=== PATIENT | male | born 1950 | race Caucasian/White ===

== ENCOUNTER 2020-07-23 06:55 | Day surgery (SDC) | payer MEDICARE ==
[~2020-07-23 06:55] MED LIST: LACTATED RINGERS 1,000 ML IV SCH; LIDOCAINE 1% (10MG/ML) FOR IV START INTRADERMA PRN
[2020-07-23 07:18] VITALS: TEMP 97.8
[2020-07-23] MEDS ORDERED: LACTATED RINGERS 1,000 ML IV ONE (07:18)
[2020-07-23] MEDS ORDERED: PROPOFOL 10 MG/ML 20 ML VIAL IV ONE (07:53)
--- NOTE | 2020-07-23 08:13 | P.PCN ---
Date of Procedure: 07/23/20 Procedure(s) Performed: BRIEF HISTORY: Patient is a 70-year-old pleasant 8 male scheduled for an elective colonoscopy as a part of screening for colon cancer and family history of colon cancer in his father was diagnosed with colon cancer at age 70. PROCEDURE PERFORMED: Colonoscopy. PREOPERATIVE DIAGNOSIS: Screening for colon cancer/family history of colon cancer. IV sedation per Anesthesia. PROCEDURE: After informed consent was obtained, the patient, was brought into the endoscopy unit. IV sedation was administered by Anesthesia under continuous monitoring. Digital rectal examination was normal. Initially the Olympus CF-160 flexible video colonoscope was then inserted in the rectum, gradually advanced into the cecum without any difficulty. Careful examination was performed as the scope was gradually being withdrawn. Ileocecal valve and the appendiceal orifice were visualized and appeared normal. Prep was excellent. Mucosa of the cecum, ascending colon, transverse colon, descending colon, sigmoid colon, and rectum appeared normal. At her sigmoid diverticulosis seen. Retroflexion was performed in the rectum and no lesions were seen. The patient tolerated the procedure well. IMPRESSION: Normal-appearing colon from rectum to cecum no evidence of colorectal neoplasia . Scattered sigmoid diverticulosis. RECOMMENDATIONS: Findings of this examination were discussed with the patient as well as his family. He was advised to have a repeat screening colonoscopy in 5 years from now because of family history of colon cancer.
[2020-07-23 08:17] VITALS: RESP 16
[2020-07-23 08:34] VITALS: BP 131/79; PULSE 72
== END 2020-07-23 08:54 | disposition home or self-care (01) ==
LOC: ORWHC2ENDO 06:55
PROVIDERS: ATTEND Internal Medicine Gastroenterology
DX: Z12.11 Encounter for screening for malignant neoplasm of colon (principal); K57.30 Diverticulosis of large intestine without perforation or abscess without bleeding; Z80.0 Family history of malignant neoplasm of digestive organs; Z79.890 Hormone replacement therapy; Z79.899 Other long term (current) drug therapy; Z98.49 Cataract extraction status, unspecified eye; Z96.643 Presence of artificial hip joint, bilateral; C91.11 Chronic lymphocytic leukemia of B-cell type in remission
CPT/HCPCS: J2704; G0105

== ENCOUNTER → 2020-11-09 | Outpatient (CLI) | payer MEDICARE | END | disposition home or self-care (01) | LOC: CPPFTMAIN 11:57 | PROVIDERS: ATTEND Internal Medicine | DX: J45.909 Unspecified asthma, uncomplicated (principal); R94.2 Abnormal results of pulmonary function studies | CPT/HCPCS: 94060; 94726; 94729 ==

== ENCOUNTER → 2021-08-31 | Outpatient (CLI) | payer MEDICARE ==
--- NOTE | 2021-08-31 15:12 | CT ---
EXAMINATION TYPE: CT abdomen pelvis w con DATE OF EXAM: 08/31/2021 COMPARISON: None HISTORY: RLQ pain CT DLP: 1194.3 mGycm Automated exposure control for dose reduction was used. CONTRAST: CT scan of the abdomen pelvis is performed with IV Contrast, patient injected with 80cc mL of Isovue 300. FINDINGS- LUNG BASES- No significant abnormality is appreciated. Heart is enlarged. LIVER/GB- No gross abnormality is appreciated. PANCREAS- No gross abnormality is seen. SPLEEN-spleen measures 20 cm and is markedly enlarged. Prominent spur of splenic varices are noted. D ilation of the splenic vein is seen.. ADRENALS- No gross abnormality is seen. KIDNEYS/BLADDER- no hydronephrosis or nephrolithiasis. There is a indeterminate subcentimeter upper p ole right renal lesion.. BOWEL-bowel gas pattern nonspecific. Diverticulosis of the colon.. LYMPH NODES-there is a pathologic lymph node in the bilateral iliac/femoral chain measuring short axi s of 1.1 cm. Additional areas of shotty lymphadenopathy are seen in the pelvis. OSSEOUS STRUCTURES-postsurgical changes with bilateral hip prostheses which result in artifact limiti ng assessment of the pelvis. Severe degenerative disc disease with retrolisthesis L2-L3. Severe degen erative disc disease lower thoracic spine.. OTHER- no free fluid or free air. 5.3 cm left flank soft tissue or intramuscular lipoma. Bladder obs cured by artifact. IMPRESSION- 1. Severe splenomegaly measuring 20 cm correlate clinically. 2. Pathologic bilateral lower quadrant lymphadenopathy in bilateral iliac chain, measuring 1.1 cm in short axis correlate clinically. Does the patient have a history of lymphoma, leukemia or malignancy? 3. Severe degenerative disc disease L2-L3 with retrolisthesis consider follow-up MRI. Suspect canal s tenosis and bilateral foraminal encroachment. 4. Metallic artifact from the patient's hip prostheses results in nondiagnostic assessment of portion s of the pelvis. 5. 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 MRI cou ld be obtained to exclude atypical lipoma. #6 indeterminate subcentimeter upper pole right renal lesi on does not meet the criteria of a simple cyst. Follow-up MRI recommended.
== END | disposition home or self-care (01) ==
LOC: RADCTMAIN 13:01
PROVIDERS: ATTEND Family Medicine
DX: R10.31 Right lower quadrant pain (principal); R16.1 Splenomegaly, not elsewhere classified; R59.1 Generalized enlarged lymph nodes; M51.36 Other intervertebral disc degeneration, lumbar region; M43.16 Spondylolisthesis, lumbar region; D17.9 Benign lipomatous neoplasm, unspecified
CPT/HCPCS: 82565; 84520; 74177; 36415; Q9967

== ENCOUNTER 2022-02-01 05:48 | Emergency (ER) | payer MEDICARE ==
[2022-02-01 05:54] VITALS: RESP 18; TEMP 98.2
[2022-02-01] MEDS ORDERED: methylPREDNISolone SOD SUCCI 125 MG/2 ML VIAL IV STA (06:14)
[2022-02-01] MEDS ORDERED: IPRATROPIUM-ALBUTEROL 3 ML NEB INHALATION STA (06:14)
--- NOTE | 2022-02-01 06:32 | ED ---
General Adult HPI - General Chief complaint: Shortness of Breath Stated complaint: SOB Time Seen by Provider: 02/01/22 05:59 Source: patient, RN notes reviewed Mode of arrival: wheelchair Limitations: no limitations - History of Present Illness Initial comments: This is a 71-year-old male presents emergency Department with chief complaint of shortness of breath. Patient states been having increasing shortness with the last 3 days. Patient states his productive cough denies any fever, chills or night sweats. Patient states he has no prior lung disease no COPD, asthma. Patient does have underlying CLL. Patient states that she has no went to chest pain does have some mild rib pain. Patient denies any leg swelling, leg pain no prior cardiac disease. - Related Data Home Medications Medication Instructions Recorded Confirmed Cholecalciferol [Vitamin D3] 2,000 unit PO DAILY 12/23/14 07/22/20 Fish Oil/Dha/Epa [Fish Oil 1,200 1 each PO DAILY 12/23/14 07/22/20 mg Fish Oil] Magnesium Oxide [Mag-Ox] 250 mg PO DAILY 12/23/14 07/22/20 Multivitamins, Thera [Theragran] 1 each PO DAILY 12/23/14 07/22/20 Levothyroxine Sodium 88 mcg PO QAM 07/22/20 07/22/20 Previous Rx's Medication Instructions Recorded Albuterol Sulfate [Proair Hfa] 1 - 2 puff INHALATION Q4HR PRN 02/01/22 #8.5 gm Azithromycin [Zithromax Z-pack (6 0 mg PO DIRECTED #1 packet 02/01/22 tabs)] predniSONE 50 mg PO DAILY #5 tab 02/01/22 Allergies Allergy/AdvReac Type Severity Reaction Status Date / Time No Known Allergies Allergy Verified 02/01/22 05:54 Review of Systems ROS Statement: Those systems with pertinent positive or pertinent negative responses have been documented in the HPI. ROS Other: All systems not noted in ROS Statement are negative. Past Medical History Past Medical History: Osteoarthritis (OA), Thyroid Disorder Additional Past Medical History / Comment(s): CHRONIC LYMPHOCYSTIC LEUKEMIA (IN REMISSION, DR. COBURN) History of Any Multi-Drug Resistant Organisms: None Reported Additional Past Surgical History / Comment(s): BILATERAL HIP REPLACED. CATARACTS, COLONOSCOPYS. Past Anesthesia/Blood Transfusion Reactions: No Reported Reaction Past Psychological History: No Psychological Hx Reported Smoking Status: Never smoker Past Alcohol Use History: Occasional Past Drug Use History: None Reported - Past Family History Father Family Medical History: Cancer Additional Family Medical History / Comment(s): COLON CANCER General Exam Limitations: no limitations General appearance: alert, in no apparent distress Head exam: Present: atraumatic, normocephalic, normal inspection Eye exam: Present: normal appearance, PERRL, EOMI. Absent: scleral icterus, conjunctival injection, periorbital swelling ENT exam: Present: normal exam, mucous membranes moist Neck exam: Present: normal inspection, full ROM Respiratory exam: Present: wheezes, rhonchi. Absent: normal lung sounds bilaterally, respiratory distress, rales, stridor Cardiovascular Exam: Present: regular rate, normal rhythm, normal heart sounds. Absent: systolic murmur, diastolic murmur, rubs, gallop, clicks GI/Abdominal exam: Present: soft, normal bowel sounds. Absent: distended, tenderness, guarding, rebound, rigid Neurological exam: Present: alert, oriented X3 Skin exam: Present: warm, dry, intact, normal color. Absent: rash Course Vital Signs 02/01/22 02/01/22 02/01/22 05:49 06:24 06:30 Temperature 98.2 F Pulse Rate 84 86 88 Respiratory 18 Rate Blood Pressure 163/84 O2 Sat by Pulse 95 Oximetry EKG Findings - EKG Comments: EKG Findings:: EKG performed at 6:08 sinus rhythm with noted right bundle, rate of 81 MT 161 QRS 142 QT/QTC 379/416 Medical Decision Making - Medical Decision Making 71-year-old male presents emergency department for cough congestion. Patient's x-ray does not reveal any acute findings, negative COVID-19, negative influenza. Does feel improved after DuoNeb treatment, IV steroids. Patient we treated for tracheobronchitis. Patient does have underlying CLL. Patient prefers to be discharged home with strict return parameters. - Lab Data Result diagrams: 02/01/22 06:17 02/01/22 06:17 Lab Results 02/01/22 02/01/22 02/01/22 Range/Units 06:17 06:17 06:17 WBC 20.9 H (3.8-10.6) k/uL RBC 4.98 (4.30-5.90) m/uL Hgb 14.1 (13.0-17.5) gm/dL Hct 43.7 (39.0-53.0) % MCV 87.8 (80.0-100.0) fL MCH 28.3 (25.0-35.0) pg MCHC 32.2 (31.0-37.0) g/dL RDW 14.2 (11.5-15.5) % Plt Count 99 L (150-450) k/uL MPV 7.3 Neutrophils % 26 % Lymphocytes % 67 % Monocytes % 2 % Eosinophils % 2 % Basophils % 0 % Neutrophils # 5.4 (1.3-7.7) k/uL Lymphocytes # 14.0 H (1.0-4.8) k/uL Monocytes # 0.4 (0-1.0) k/uL Eosinophils # 0.5 (0-0.7) k/uL Basophils # 0.1 (0-0.2) k/uL Manual Slide Review Performed PT 10.4 (9.0-12.0) sec INR 1.0 (<1.2) APTT 22.9 (22.0-30.0) sec Sodium 142 (137-145) mmol/L Potassium 4.3 (3.5-5.1) mmol/L Chloride 107 (98-107) mmol/L Carbon Dioxide 26 (22-30) mmol/L Anion Gap 9 mmol/L BUN 23 H (9-20) mg/dL Creatinine 1.27 H (0.66-1.25) mg/dL Est GFR (CKD-EPI)AfAm 64 (>60 ml/min/1.73 sqM) Est GFR (CKD-EPI)NonAf 56 (>60 ml/min/1.73 sqM) Glucose 121 H (74-99) mg/dL Plasma Lactic Acid Parker (0.7-2.0) mmol/L Calcium 8.9 (8.4-10.2) mg/dL Magnesium 2.1 (1.6-2.3) mg/dL Total Bilirubin 2.2 H (0.2-1.3) mg/dL AST 27 (17-59) U/L ALT 14 (4-49) U/L Alkaline Phosphatase 69 (38-126) U/L Troponin I (0.000-0.034) ng/mL NT-Pro-B Natriuret Pep pg/mL Total Protein 7.3 (6.3-8.2) g/dL Albumin 4.8 (3.5-5.0) g/dL Coronavirus (PCR) (Not Detectd) Influenza Type A RNA (Not Detectd) Influenza Type B (PCR) (Not Detectd) 02/01/22 02/01/22 02/01/22 Range/Units 06:17 06:17 06:17 WBC (3.8-10.6) k/uL RBC (4.30-5.90) m/uL Hgb (13.0-17.5) gm/dL Hct (39.0-53.0) % MCV (80.0-100.0) fL MCH (25.0-35.0) pg MCHC (31.0-37.0) g/dL RDW (11.5-15.5) % Plt Count (150-450) k/uL MPV Neutrophils % % Lymphocytes % % Monocytes % % Eosinophils % % Basophils % % Neutrophils # (1.3-7.7) k/uL Lymphocytes # (1.0-4.8) k/uL Monocytes # (0-1.0) k/uL Eosinophils # (0-0.7) k/uL Basophils # (0-0.2) k/uL Manual Slide Review PT (9.0-12.0) sec INR (<1.2) APTT (22.0-30.0) sec Sodium (137-145) mmol/L Potassium (3.5-5.1) mmol/L Chloride (98-107) mmol/L Carbon Dioxide (22-30) mmol/L Anion Gap mmol/L BUN (9-20) mg/dL Creatinine (0.66-1.25) mg/dL Est GFR (CKD-EPI)AfAm (>60 ml/min/1.73 sqM) Est GFR (CKD-EPI)NonAf (>60 ml/min/1.73 sqM) Glucose (74-99) mg/dL Plasma Lactic Acid Parker 1.0 (0.7-2.0) mmol/L Calcium (8.4-10.2) mg/dL Magnesium (1.6-2.3) mg/dL Total Bilirubin (0.2-1.3) mg/dL AST (17-59) U/L ALT (4-49) U/L Alkaline Phosphatase (38-126) U/L Troponin I <0.012 (0.000-0.034) ng/mL NT-Pro-B Natriuret Pep 110 pg/mL Total Protein (6.3-8.2) g/dL Albumin (3.5-5.0) g/dL Coronavirus (PCR) (Not Detectd) Influenza Type A RNA (Not Detectd) Influenza Type B (PCR) (Not Detectd) 02/01/22 02/01/22 Range/Units 06:17 06:17 WBC (3.8-10.6) k/uL RBC (4.30-5.90) m/uL Hgb (13.0-17.5) gm/dL Hct (39.0-53.0) % MCV (80.0-100.0) fL MCH (25.0-35.0) pg MCHC (31.0-37.0) g/dL RDW (11.5-15.5) % Plt Count (150-450) k/uL MPV Neutrophils % % Lymphocytes % % Monocytes % % Eosinophils % % Basophils % % Neutrophils # (1.3-7.7) k/uL Lymphocytes # (1.0-4.8) k/uL Monocytes # (0-1.0) k/uL Eosinophils # (0-0.7) k/uL Basophils # (0-0.2) k/uL Manual Slide Review PT (9.0-12.0) sec INR (<1.2) APTT (22.0-30.0) sec Sodium (137-145) mmol/L Potassium (3.5-5.1) mmol/L Chloride (98-107) mmol/L Carbon Dioxide (22-30) mmol/L Anion Gap mmol/L BUN (9-20) mg/dL Creatinine (0.66-1.25) mg/dL Est GFR (CKD-EPI)AfAm (>60 ml/min/1.73 sqM) Est GFR (CKD-EPI)NonAf (>60 ml/min/1.73 sqM) Glucose (74-99) mg/dL Plasma Lactic Acid Parker (0.7-2.0) mmol/L Calcium (8.4-10.2) mg/dL Magnesium (1.6-2.3) mg/dL Total Bilirubin (0.2-1.3) mg/dL AST (17-59) U/L ALT (4-49) U/L Alkaline Phosphatase (38-126) U/L Troponin I (0.000-0.034) ng/mL NT-Pro-B Natriuret Pep pg/mL Total Protein (6.3-8.2) g/dL Albumin (3.5-5.0) g/dL Coronavirus (PCR) Not Detected (Not Detectd) Influenza Type A RNA Not Detected (Not Detectd) Influenza Type B (PCR) Not Detected (Not Detectd) Disposition Clinical Impression: Tracheobronchitis Disposition: TRANSFER TO PSYCH HOSP/UNIT Condition: Stable Instructions (If sedation given, give patient instructions): Acute Bronchitis (ED), Bronchospasm (ED) Additional Instructions: Please return to the Emergency Department if symptoms worsen or any other concerns. Prescriptions: predniSONE 50 mg PO DAILY #5 tab Albuterol Sulfate [Proair Hfa] 1 - 2 puff INHALATION Q4HR PRN #8.5 gm PRN Reason: difficulty in breathing Azithromycin [Zithromax Z-pack (6 tabs)] 0 mg PO DIRECTED #1 packet Is patient prescribed a controlled substance at d/c from ED?: No Referrals: Melinda Elkins MD [Primary Care Provider] - 1-2 days Time of Disposition: 08:14
--- NOTE | 2022-02-01 06:41 | XR ---
EXAMINATION TYPE: XR chest 2V DATE OF EXAM: 02/01/2022 COMPARISON: 07/19/2021 HISTORY: Short of breath TECHNIQUE: 2 views FINDINGS: Heart and mediastinum are normal. Lungs are clear. Diaphragm is normal. Bony thorax is inta ct. IMPRESSION: Normal chest. No change.
[2022-02-01 06:44] LABS: Albumin 4.8 g/dL (3.5-5.0); Calcium 8.9 mg/dL (8.4-10.2); Magnesium 2.1 mg/dL (1.6-2.3); Potassium 4.3 mmol/L (3.5-5.1); Total Bilirubin 2.2 mg/dL (0.2-1.3); Total Protein 7.3 g/dL (6.3-8.2)
[2022-02-01 07:00] LABS: Basophils # (A) 0.1 k/uL (0-0.2); Basophils % (A) 0 %; Eosinophils # (A) 0.5 k/uL (0-0.7); Eosinophils % (A) 2 %; HCT 43.7 % (39.0-53.0); HGB 14.1 gm/dL (13.0-17.5); Lymphocytes % (A) 67 %; MCH 28.3 pg (25.0-35.0); MCHC 32.2 g/dL (31.0-37.0); MCV 87.8 fL (80.0-100.0); Mean Platelet Volume 7.3; Monocytes # (A) 0.4 k/uL (0-1.0); Monocytes % (A) 2 %; Neutrophils # (A) 5.4 k/uL (1.3-7.7); Neutrophils % (A) 26 %; RBC 4.98 m/uL (4.30-5.90); RDW 14.2 % (11.5-15.5); WBC 20.9 k/uL (3.8-10.6)
[2022-02-01 07:22] LABS: Partial Thromboplastin Time 22.9 sec (22.0-30.0); Prothrombin Time 10.4 sec (9.0-12.0)
[2022-02-01 08:02] LABS: Platelet Count 99 k/uL (150-450)
[2022-02-01] MEDS ORDERED: cefTRIAXone IN SWFI 1,000 MG/10 ML SYRINGE IVP STA (08:12)
[2022-02-01 08:28] VITALS: BP 156/88; PULSE 78
== END 2022-02-01 08:28 ==
LOC: EC 05:48
DX: J40 Bronchitis, not specified as acute or chronic (principal); E07.9 Disorder of thyroid, unspecified; Z79.1 Long term (current) use of non-steroidal anti-inflammatories (NSAID); Z20.822 Contact with and (suspected) exposure to COVID-19
CPT/HCPCS: 99285; 96375; 96374; 36415; 94640; 93005; 83880; 80053; 83605; 83735; 84484; 85025; 85610; 85730; 87502; 87635; 71046; J2930; J0696

== ENCOUNTER → 2022-03-28 | Outpatient (CLI) | payer MEDICARE | END | disposition home or self-care (01) | LOC: RADMRIMAIN 06:14 | PROVIDERS: ATTEND Internal Medicine Hematology & Oncology | DX: C91.10 Chronic lymphocytic leukemia of B-cell type not having achieved remission (principal); M25.511 Pain in right shoulder | CPT/HCPCS: 73223; A9585 ==

== ENCOUNTER 2022-08-31 10:17 | Emergency (ER) | payer MEDICARE ==
[2022-08-31 10:23] VITALS: RESP 18
[2022-08-31] MEDS ORDERED: SODIUM CHLORIDE 0.9% 500 ML 500 ML IV STA (10:37)
--- NOTE | 2022-08-31 10:43 | ED ---
General Adult HPI - General Chief complaint: Shortness of Breath Stated complaint: Chest Pain,SOB Time Seen by Provider: 08/31/22 10:25 Source: patient, RN notes reviewed, old records reviewed Mode of arrival: ambulatory Limitations: no limitations - History of Present Illness Initial comments: This is a pleasant 72-year-old male that presents to the emergency room with complaints of productive yellow cough and left-sided chest pain for the past 2 days. He denies any fevers, no diaphoresis, no nausea vomiting or diarrhea. Patient states went to his primary care doctor today and was directed to the emergency room for evaluation. EKG was done at the office. Patient denies any cardiac history. Does have a history of CLL in remission. Patient is a nonsmoker. -: days(s) (2) Location: chest Radiation: non-radiation Severity scale (1-10): 0 Consistency: now resolved Worsens with: other (Cough) Associated Symptoms: cough (Productive), shortness of breath Treatments Prior to Arrival: other (Sent by PCP) - Related Data Home Medications Medication Instructions Recorded Confirmed Levothyroxine Sodium 88 mcg PO DAILY 07/22/20 08/31/22 Celecoxib [CeleBREX] 200 mg PO DAILY 02/01/22 08/31/22 Previous Rx's Medication Instructions Recorded Doxycycline [Vibramycin] 100 mg PO BID 5 Days #10 capsule 08/31/22 predniSONE 50 mg PO DAILY #4 tab 08/31/22 Allergies Allergy/AdvReac Type Severity Reaction Status Date / Time No Known Allergies Allergy Verified 08/31/22 11:23 Review of Systems ROS Statement: Those systems with pertinent positive or pertinent negative responses have been documented in the HPI. ROS Other: All systems not noted in ROS Statement are negative. Past Medical History Past Medical History: Osteoarthritis (OA), Thyroid Disorder Additional Past Medical History / Comment(s): CHRONIC LYMPHOCYSTIC LEUKEMIA (IN REMISSION, DR. COBURN) History of Any Multi-Drug Resistant Organisms: None Reported Additional Past Surgical History / Comment(s): BILATERAL HIP REPLACED. CATARACTS, COLONOSCOPYS. Past Anesthesia/Blood Transfusion Reactions: No Reported Reaction Past Psychological History: No Psychological Hx Reported Smoking Status: Never smoker Past Alcohol Use History: Rare Past Drug Use History: None Reported - Past Family History Father Family Medical History: Cancer Additional Family Medical History / Comment(s): COLON CANCER General Exam Limitations: no limitations General appearance: alert, in no apparent distress Head exam: Present: atraumatic Eye exam: Absent: scleral icterus, conjunctival injection, periorbital swelling ENT exam: Present: mucous membranes moist Expanded Mouth exam: Present: tongue normal, tongue elevation. Absent: drooling, trismus, muffled voice Throat exam: negative: tonsillar erythema, tonsillar exudate Neck exam: Present: full ROM. Absent: tenderness, meningismus Respiratory exam: Present: wheezes (Left), rhonchi. Absent: respiratory distress, stridor, accessory muscle use Cardiovascular Exam: Present: regular rate GI/Abdominal exam: Present: soft. Absent: distended, tenderness, rigid Extremities exam: Present: normal capillary refill Back exam: Present: normal inspection. Absent: tenderness, rash noted Neurological exam: Present: alert, oriented X3 Psychiatric exam: Present: normal affect, normal mood Skin exam: Present: warm, dry, normal color. Absent: rash, cyanosis, diaphoretic, erythema, petechiae, pallor, mottled Course Vital Signs 08/31/22 08/31/22 08/31/22 10:20 11:34 12:09 Temperature 97.6 F Pulse Rate 94 80 79 Respiratory 18 18 18 Rate Blood Pressure 160/89 137/76 153/81 O2 Sat by Pulse 98 96 96 Oximetry - Reevaluation(s) Reevaluation #1: 08/31/22 12:11 He states he is not having any chest pain and has not had pain while in the emergency room. I offered admission for cardiology consult and he declined. Patient is agreeable to having second troponin drawn. Time: 12:11 EKG Findings - EKG Results: EKG: interpreted by MISSY, sinus rhythm (Ventricular rate 81, PA interval 0.132, QRS 0.150, QTC 0.442; normal axis ; compared to old EKG dated 02/01/2022 no significant change T-wave inversions noted in old EKG) Medical Decision Making - Medical Decision Making Chest x-ray interpreted by me shows no evidence of focal consolidation. Cardiac silhouette of normal is trachea is midline. Radiologist interpretation no acute process, mild hyperinflation consistent with asthma or COPD Total bili 3.0 previous bilirubin 2.2 in January 2022 White blood cell count 18.4 however patient does have CLL, white count in January 2022 was 20.9 Patient was notified of these results and directed to follow up with his primary care doctor regarding elevated bilirubin. Troponin is negative. EKG interpreted by me shows no ST elevation. No EKG changes. Coronavirus influenza virus swabs are negative. Patient was offered admission for cardiology consult and declined. We discussed the importance of follow-up. He was willing to stay for a second troponin as first one was negative. He has had no chest pain while in hospital. Patient leaving AGAINST MEDICAL ADVICE did not want to wait for the result of the second troponin. He was prescribed prednisone and doxycycline for clinical pneumonia. Directed to follow-up with his primary care doctor next week. Case discussed with Dr. Hale - Lab Data Result diagrams: 08/31/22 10:38 08/31/22 10:38 Lab Results 08/31/22 08/31/22 08/31/22 Range/Units 10:38 10:38 10:38 WBC 18.4 H (3.8-10.6) k/uL RBC 4.75 (4.30-5.90) m/uL Hgb 13.9 (13.0-17.5) gm/dL Hct 41.6 (39.0-53.0) % MCV 87.5 (80.0-100.0) fL MCH 29.3 (25.0-35.0) pg MCHC 33.4 (31.0-37.0) g/dL RDW 13.5 (11.5-15.5) % Plt Count 73 L (150-450) k/uL MPV 7.5 Neutrophils % 24 % Lymphocytes % 71 % Monocytes % 2 % Eosinophils % 1 % Basophils % 1 % Neutrophils # 4.4 (1.3-7.7) k/uL Lymphocytes # 13.1 H (1.0-4.8) k/uL Monocytes # 0.4 (0-1.0) k/uL Eosinophils # 0.2 (0-0.7) k/uL Basophils # 0.1 (0-0.2) k/uL Manual Slide Review Performed PT 10.3 (9.0-12.0) sec INR 1.0 (<1.2) APTT 23.5 (22.0-30.0) sec Sodium 141 (137-145) mmol/L Potassium 4.1 (3.5-5.1) mmol/L Chloride 106 (98-107) mmol/L Carbon Dioxide 25 (22-30) mmol/L Anion Gap 10 mmol/L BUN 20 (9-20) mg/dL Creatinine 1.25 (0.66-1.25) mg/dL Est GFR (CKD-EPI)AfAm 66 (>60 ml/min/1.73 sqM) Est GFR (CKD-EPI)NonAf 57 (>60 ml/min/1.73 sqM) Glucose 112 H (74-99) mg/dL Calcium 8.8 (8.4-10.2) mg/dL Magnesium 2.0 (1.6-2.3) mg/dL Total Bilirubin 3.0 H (0.2-1.3) mg/dL AST 26 (17-59) U/L ALT 18 (4-49) U/L Alkaline Phosphatase 85 (38-126) U/L Troponin I (0.000-0.034) ng/mL Total Protein 7.0 (6.3-8.2) g/dL Albumin 4.6 (3.5-5.0) g/dL Coronavirus (PCR) (Not Detectd) Influenza Type A RNA (Not Detectd) Influenza Type B (PCR) (Not Detectd) 08/31/22 08/31/22 08/31/22 Range/Units 10:38 10:38 10:38 WBC (3.8-10.6) k/uL RBC (4.30-5.90) m/uL Hgb (13.0-17.5) gm/dL Hct (39.0-53.0) % MCV (80.0-100.0) fL MCH (25.0-35.0) pg MCHC (31.0-37.0) g/dL RDW (11.5-15.5) % Plt Count (150-450) k/uL MPV Neutrophils % % Lymphocytes % % Monocytes % % Eosinophils % % Basophils % % Neutrophils # (1.3-7.7) k/uL Lymphocytes # (1.0-4.8) k/uL Monocytes # (0-1.0) k/uL Eosinophils # (0-0.7) k/uL Basophils # (0-0.2) k/uL Manual Slide Review PT (9.0-12.0) sec INR (<1.2) APTT (22.0-30.0) sec Sodium (137-145) mmol/L Potassium (3.5-5.1) mmol/L Chloride (98-107) mmol/L Carbon Dioxide (22-30) mmol/L Anion Gap mmol/L BUN (9-20) mg/dL Creatinine (0.66-1.25) mg/dL Est GFR (CKD-EPI)AfAm (>60 ml/min/1.73 sqM) Est GFR (CKD-EPI)NonAf (>60 ml/min/1.73 sqM) Glucose (74-99) mg/dL Calcium (8.4-10.2) mg/dL Magnesium (1.6-2.3) mg/dL Total Bilirubin (0.2-1.3) mg/dL AST (17-59) U/L ALT (4-49) U/L Alkaline Phosphatase (38-126) U/L Troponin I <0.012 (0.000-0.034) ng/mL Total Protein (6.3-8.2) g/dL Albumin (3.5-5.0) g/dL Coronavirus (PCR) Not Detected (Not Detectd) Influenza Type A RNA Not Detected (Not Detectd) Influenza Type B (PCR) Not Detected (Not Detectd) Disposition Clinical Impression: Chest pain, Viral upper respiratory illness Disposition: Left Against Medical Advice Condition: Good Instructions (If sedation given, give patient instructions): Chest Pain (ED), Upper Respiratory Infection (ED) Additional Instructions: You were offered admission to the hospital for evaluation of your chest pain. I did recommend you stay for a cardiology consult to be sure that this is not cardiac related. I understsand that you declined this admission and will return with any new or concerning symptoms. If you develop any further chest pain or shortness of breath I recommend you return to the nearest emergency room. Increase your fluid intake. Tylenol and Motrin as needed for any discomfort. Follow-up with your primary care doctor on Sunday. Prescriptions: predniSONE 50 mg PO DAILY #4 tab Doxycycline [Vibramycin] 100 mg PO BID 5 Days #10 capsule Is patient prescribed a controlled substance at d/c from ED?: No Referrals: Rosalino Holcomb MD [Primary Care Provider] - 1-2 days
[2022-08-31 11:01] LABS: Basophils # (A) 0.1 k/uL (0-0.2); Basophils % (A) 1 %; Eosinophils # (A) 0.2 k/uL (0-0.7); Eosinophils % (A) 1 %; HCT 41.6 % (39.0-53.0); HGB 13.9 gm/dL (13.0-17.5); Lymphocytes # (A) 13.1 k/uL (1.0-4.8); Lymphocytes % (A) 71 %; MCH 29.3 pg (25.0-35.0); MCHC 33.4 g/dL (31.0-37.0); MCV 87.5 fL (80.0-100.0); Mean Platelet Volume 7.5; Monocytes # (A) 0.4 k/uL (0-1.0); Monocytes % (A) 2 %; Neutrophils # (A) 4.4 k/uL (1.3-7.7); Neutrophils % (A) 24 %; RBC 4.75 m/uL (4.30-5.90); RDW 13.5 % (11.5-15.5); WBC 18.4 k/uL (3.8-10.6)
[2022-08-31 11:15] LABS: Albumin 4.6 g/dL (3.5-5.0); Calcium 8.8 mg/dL (8.4-10.2); Potassium 4.1 mmol/L (3.5-5.1)
--- NOTE | 2022-08-31 11:15 | XR ---
EXAMINATION TYPE: XR chest 2V DATE OF EXAM: 08/31/2022 COMPARISON: NONE TECHNIQUE: PA and lateral views submitted. HISTORY: Difficulty breathing FINDINGS: The lungs are clear and there is no pneumothorax, pleural effusion, or focal pneumonia. Arthropathy of the shoulders. Heart size normal. Atherosclerotic change of aorta. Hypertrophic and degenerative c hanges of the spine with scoliotic curvature. Mild hyperinflation correlate for asthma or COPD. IMPRESSION: 1. No acute process.
[2022-08-31 11:41] LABS: Partial Thromboplastin Time 23.5 sec (22.0-30.0); Prothrombin Time 10.3 sec (9.0-12.0)
[2022-08-31 12:04] LABS: Platelet Count 73 k/uL (150-450)
[2022-08-31] MEDS ORDERED: predniSONE 50 MG TAB PO STA (17:09)
[2022-08-31 17:58] VITALS: BP 126/78; PULSE 90; TEMP 98
== END 2022-08-31 17:58 | disposition left against medical advice (07) ==
LOC: EC 10:17
DX: J06.9 Acute upper respiratory infection, unspecified (principal); R07.89 Other chest pain; M19.90 Unspecified osteoarthritis, unspecified site; E07.9 Disorder of thyroid, unspecified; Z79.1 Long term (current) use of non-steroidal anti-inflammatories (NSAID); Z79.890 Hormone replacement therapy; Z20.822 Contact with and (suspected) exposure to COVID-19; Z53.29 Procedure and treatment not carried out because of patient's decision for other reasons
CPT/HCPCS: 36415; 71046; 80053; 83735; 84484; 85025; 85610; 85730; 87502; 87635; 93005; 99285

== ENCOUNTER 2022-09-08 09:31 | Emergency (ER) | payer MEDICARE ==
[2022-09-08 09:36] VITALS: TEMP 97.4
--- NOTE | 2022-09-08 09:58 | ED ---
General Adult HPI - General Chief complaint: Extremity Injury, Upper Stated complaint: Swollen arm Time Seen by Provider: 09/08/22 09:49 Source: patient, RN notes reviewed, old records reviewed Mode of arrival: ambulatory Limitations: no limitations - History of Present Illness Initial comments: This is a well-appearing 72-year-old male that presents to the emergency room with right antecubital pain and swelling with tingling down to his hand. Patient states that he was in the hospital last week and had an IV placed in that arm in that area. States that Sunday he developed some pain and swelling and tenderness. Concerned for blood clot. -: days(s) (4) Location: right, upper extremity Quality: constant, other (tingling) Consistency: constant Improves with: other (ice) Associated Symptoms: denies other symptoms Treatments Prior to Arrival: none - Related Data Home Medications Medication Instructions Recorded Confirmed Levothyroxine Sodium 88 mcg PO DAILY 07/22/20 08/31/22 Celecoxib [CeleBREX] 200 mg PO DAILY 02/01/22 08/31/22 Previous Rx's Medication Instructions Recorded Doxycycline [Vibramycin] 100 mg PO BID 5 Days #10 capsule 08/31/22 predniSONE 50 mg PO DAILY #4 tab 08/31/22 Allergies Allergy/AdvReac Type Severity Reaction Status Date / Time No Known Allergies Allergy Verified 09/08/22 09:36 Review of Systems ROS Statement: Those systems with pertinent positive or pertinent negative responses have been documented in the HPI. ROS Other: All systems not noted in ROS Statement are negative. Past Medical History Past Medical History: Osteoarthritis (OA), Thyroid Disorder Additional Past Medical History / Comment(s): CHRONIC LYMPHOCYSTIC LEUKEMIA (IN REMISSION, DR. COBURN) History of Any Multi-Drug Resistant Organisms: None Reported Additional Past Surgical History / Comment(s): BILATERAL HIP REPLACED. CATARACTS, COLONOSCOPYS. Past Anesthesia/Blood Transfusion Reactions: No Reported Reaction Past Psychological History: No Psychological Hx Reported Smoking Status: Never smoker Past Alcohol Use History: Rare Past Drug Use History: None Reported - Past Family History Father Family Medical History: Cancer Additional Family Medical History / Comment(s): COLON CANCER General Exam Limitations: no limitations General appearance: alert, in no apparent distress Head exam: Present: atraumatic Eye exam: Absent: scleral icterus, conjunctival injection, periorbital swelling Respiratory exam: Present: normal lung sounds bilaterally. Absent: respiratory distress, accessory muscle use Cardiovascular Exam: Present: regular rate Right Elbow exam: Present: full ROM, tenderness (Antecubital fossa), swelling, ecchymosis. Absent: abrasion, laceration, deformity, dislocation, erythema, effusion, pain w/ pronation/supination, tenderness over radial head Forearm Wrist exam: Present: normal inspection, full ROM. Absent: tenderness, swelling, ecchymosis, erythema Hand Wrist exam: Present: normal inspection, full ROM. Absent: tenderness, swelling, ecchymosis, erythema Vascular: Present: normal capillary refill, radial pulse. Absent: vascular compromise Neurological exam: Present: alert, oriented X3, normal gait Psychiatric exam: Present: normal affect, normal mood Skin exam: Present: warm, dry, normal color. Absent: cyanosis, diaphoretic, petechiae, pallor Course Vital Signs 09/08/22 09/08/22 09:34 11:10 Temperature 97.4 F L Pulse Rate 78 81 Respiratory 18 17 Rate Blood Pressure 159/100 116/72 O2 Sat by Pulse 98 99 Oximetry Medical Decision Making - Medical Decision Making Was pt. sent in by a medical professional or institution? @ -No Did you speak to anyone other than the patient for history? @ -No Did you review nursing and triage notes? @ -Yes I agree Were old charts reviewed? @ -No Differential Diagnosis? @ -Thrombophlebitis, cellulitis, DVT EKG interpreted by me (3pts min.)? @ -Not applicable X-rays interpreted by me (1pt min.)? @ -Not applicable CT interpreted by me (1pt min.)? @ -Not applicable U/S interpreted by me (1pt. min.)? @ -Yes, evidence of normal flow What testing was considered but not performed? (CT, X-rays, U/S, labs)? Why? @ No What meds were considered but not given? Why? @ - no Did you discuss the management of the patient with other professionals? @ -No Did you reconcile home meds? @ -No Was smoking cessation discussed for >3mins.? @ -No Was critical care preformed (if so, how long)? @ -No Were there social determinants of health that impacted care today? How? (Homelessness, low income, unemployed, alcoholism, drug addiction, transportation, low edu. Level, literacy, decrease access to med. care, intermediate, rehab)? @ -None Was there de-escalation of care discussed even if they declined? (Discuss DNR or withdrawal of care, Hospice)? @ -No What co-morbidities impacted this encounter? (DM, HTN, Smoking, COPD, CAD, Cancer, CVA, Hep., AIDS, mental health diagnosis, sleep apnea, morbid obesity)? @ -none Was patient admitted / discharged? @ -Discharged Undiagnosed new problem with uncertain prognosis? @ -[none] Drug Therapy requiring intensive monitoring for toxicity (Heparin, Nitro, Insulin, Cardizem)? @ -None Were any procedures done? @ -No Diagnosis/symptom? @ -Superficial thrombophlebitis likely from IV catheter last week Acute, or Chronic, or Acute on Chronic? @ -Acute Uncomplicated (without systemic symptoms) or Complicated (systemic symptoms)? @ -Uncomplicated Side effects of treatment? @ -No Exacerbation, Progression, or Severe Exacerbation] @ -[no] Poses a threat to life or bodily function? @ -No Case discussed with Dr. Hale Disposition Clinical Impression: Superficial venous thrombosis of right arm Disposition: HOME SELF-CARE Condition: Good Instructions (If sedation given, give patient instructions): Superficial Thrombophlebitis (ED) Additional Instructions: Apply heat to the painful area and elevate arm. You can also use [id number] Motrin. This will resolve in 1-2 weeks. Follow-up with the primary care doctor as needed. Is patient prescribed a controlled substance at d/c from ED?: No Referrals: Rosalino Holcomb MD [Primary Care Provider] - 1-2 days Time of Disposition: 11:01
--- NOTE | 2022-09-08 10:56 | US ---
EXAMINATION TYPE: US venous doppler duplex UE RT DATE OF EXAM: 09/08/2022 COMPARISON: NONE CLINICAL HISTORY: 72-year-old male pain, swelling. Patient states he had an IV x 1 week ago. TECHNIQUE: Grayscale, color doppler, spectral doppler imaging performed of the deep veins of the uppe r extremities. SIDE PERFORMED: Right Right Arm: Negative for DVT. Credit Specialist notes: Appears POSITIVE for SVT at antecubital area. There is normal flow, compressibility and vascular waveforms within the deep venous system. IMPRESSION: 1. Positive for SVT antecubital fossa. 2. No sonographic evidence for DVT right upper extremity.
[2022-09-08 11:11] VITALS: BP 116/72; PULSE 81; RESP 17
== END 2022-09-08 11:11 | disposition home or self-care (01) ==
LOC: EC 09:31
DX: I82.611 Acute embolism and thrombosis of superficial veins of right upper extremity (principal); I47.1 Supraventricular tachycardia; M19.90 Unspecified osteoarthritis, unspecified site; E07.9 Disorder of thyroid, unspecified; Z79.890 Hormone replacement therapy; Z79.1 Long term (current) use of non-steroidal anti-inflammatories (NSAID)
CPT/HCPCS: 99284

== ENCOUNTER → 2023-03-21 | Outpatient (CLI) | payer MEDICARE ==
[2023-03-22 00:35] LABS: Blood Urea Nitrogen 27.4 mg/dL (9.0-27.0); Carbon Dioxide 25.5 mmol/L (21.6-31.8); Chloride 106 mmol/L (96-109); Potassium 5.4 mmol/L (3.5-5.5); Sodium 142 mmol/L (135-145)
== END | disposition home or self-care (01) ==
LOC: LABWHC1 13:54
PROVIDERS: ATTEND Internal Medicine Interventional Cardiology
DX: I10 Essential (primary) hypertension (principal)
CPT/HCPCS: 36415; 80051; 82565; 84520

== ENCOUNTER → 2023-08-07 | Outpatient (CLI) | payer MEDICARE ==
[2023-08-07 16:16] LABS: Basophils # (A) 0.2 k/uL (0-0.2); Basophils % (A) 1 %; Eosinophils # (A) 0.1 k/uL (0-0.7); Eosinophils % (A) 0 %; HCT 40.9 % (39.0-53.0); HGB 13.3 gm/dL (13.0-17.5); Lymphocytes % (A) 84 %; MCH 29.9 pg (25.0-35.0); MCHC 32.6 g/dL (31.0-37.0); MCV 91.7 fL (80.0-100.0); Mean Platelet Volume 8.1; Monocytes # (A) 0.3 k/uL (0-1.0); Monocytes % (A) 1 %; Neutrophils # (A) 4.4 k/uL (1.3-7.7); Neutrophils % (A) 12 %; Platelet Count 102 k/uL (150-450); RBC 4.46 m/uL (4.30-5.90); RDW 13.3 % (11.5-15.5); WBC 38.5 k/uL (3.8-10.6)
[2023-08-07 16:28] LABS: Lymphocytes # (A) 32.4 k/uL (1.0-4.8)
[2023-08-07 16:38] LABS: Total Eosinophil Count 154 #EOS/uL (150-300)
[2023-08-07 16:53] LABS: Eosinophils # (M) 0.39 k/uL (0-0.7); Lymphocytes # (M) 35.04 k/uL (1.0-4.8); Monocytes # (M) 0.39 k/uL (0-1.0); Neutrophils % (M) 7 %; Nucleated Red Blood Cells 0 /100 WBC (0-0); Total Cells Counted 100
[2023-08-08 02:56] LABS: Immunoglobulin M <35.0 mg/dL (40.0-280.0)
[2023-08-08 03:12] LABS: Immunoglobulin A <65.0 mg/dL (60.0-350.0)
[2023-08-08 03:21] LABS: Immunoglobulin E <5.00 IU/mL (0.00-114.00)
[2023-08-08 05:19] LABS: Alternaria alternata IgE <0.10 kU/L; Aspergillus fumagatus IgE <0.10 kU/L; Birch IgE <0.10 kU/L; Cat Epith & Dander IgE <0.10 kU/L; Cladosporian herbarum IgE <0.10 kU/L; Cockroach IgE <0.10 kU/L; Dermato. farinae IgE <0.10 kU/L; Dog Dander IgE <0.10 kU/L; Elm IgE <0.10 kU/L; Maple (Box Elder) IgE <0.10 kU/L; Oak IgE <0.10 kU/L; Ragweed,Common IgE <0.10 kU/L; Red Top (Bentgrass) IgE <0.10 kU/L
== END | disposition home or self-care (01) ==
LOC: LABWHC1 15:08
PROVIDERS: ATTEND Internal Medicine
DX: J45.909 Unspecified asthma, uncomplicated (principal); R05.9 Cough, unspecified
CPT/HCPCS: 36415; 82784; 82785; 85008; 85025; 86003

== ENCOUNTER → 2023-08-13 | Outpatient (CLI) | payer MEDICARE ==
[2023-08-13 15:17] LABS: African American GFR (CKD) 64 (>60 ml/min/1.73 sqM); Blood Urea Nitrogen 33 mg/dL (9-20); Non-African American GFR(CKD) 55 (>60 ml/min/1.73 sqM)
--- NOTE | 2023-08-13 19:02 | CT ---
EXAMINATION TYPE: CT chest w con DATE OF EXAM: 08/13/2023 COMPARISON: None HISTORY: Cough x 1 month. History of CLL leukemia. CT DLP: 707 mGycm, Automated exposure control for dose reduction was used. CONTRAST: Performed injected with 80 cc mL of Isovue 300. TECHNIQUE: Axial images were obtained at 5 mm thick sections. Reconstructed images are reviewed on [employer] computer in the coronal plane. FINDINGS: Portion of the thyroid visualized is normal. No suspicious lung nodules or focal infiltrates are present. No enlarged mediastinal or hilar adenopathy is evident. The ascending aorta diameter at the level o f the main pulmonary artery is 3.5 cm. The main pulmonary artery diameter at the bifurcation is 2.[address] sections are obtained through the upper abdomen. Marked splenomegaly is present. Mild fatt y infiltration of the liver may be present. IMPRESSION: 1. No acute pulmonary process. 2. Marked splenomegaly.
== END | disposition home or self-care (01) ==
LOC: RADCTMAIN 14:43
PROVIDERS: ATTEND Internal Medicine
DX: R16.1 Splenomegaly, not elsewhere classified (principal); R05.3 Chronic cough; Z85.6 Personal history of leukemia
CPT/HCPCS: 82565; 84520; 71260; 36415; Q9967

== ENCOUNTER → 2023-09-07 | Outpatient (CLI) | payer MEDICARE ==
[2023-09-07 12:51] LABS: African American GFR (CKD) 58 (>60 ml/min/1.73 sqM); Blood Urea Nitrogen 26 mg/dL (9-20); Non-African American GFR(CKD) 51 (>60 ml/min/1.73 sqM)
--- NOTE | 2023-09-07 15:59 | CT ---
EXAMINATION TYPE: CT abdomen pelvis w con DATE OF EXAM: 09/07/2023 COMPARISON: 08/31/2021 HISTORY: Chronic lymphocytic leukemia. Concern for spleen. CT DLP: 1277.60 mGycm Automated exposure control for dose reduction was used. TECHNIQUE: Helical acquisition of images was performed from the lung bases through the pelvis. CONTRAST: Performed with Oral Contrast and with IV Contrast, patient injected with 80cc mL of Isovue 300. FINDINGS: Visualized lung bases are clear. There is marked splenomegaly with the AP dimension measuring 20 cm. There is been no significant inte rval change compared to previous. The gallbladder is normal without gallstones, distention, wall thickening or pericholecystic fluid. T here is no biliary ductal dilatation. There is no focal mass or organomegaly involving the liver, pancreas or adrenal glands. There is no solid renal mass or hydronephrosis. There is no retroperitoneal adenopathy or hemorrhage in the caliber the abdominal aorta is normal. The bowel loops are normal in caliber and there is no dilatation or obstruction. No focal inflammator y changes are identified in the bowel wall or mesentery and there is no free intraperitoneal air or f luid. There are bilateral hip prostheses. There are a few scattered mildly prominent iliac chain lymph nodes which were seen previously and are stable. No focal osseous lesions are seen. IMPRESSION: Marked splenomegaly with no significant interval change compared to previous. Stable mild bilateral i liac chain lymphadenopathy.
== END | disposition home or self-care (01) ==
LOC: RADCTMAIN 12:05
PROVIDERS: ATTEND Internal Medicine Hematology & Oncology
DX: C91.10 Chronic lymphocytic leukemia of B-cell type not having achieved remission (principal); R16.1 Splenomegaly, not elsewhere classified; R59.0 Localized enlarged lymph nodes; E03.9 Hypothyroidism, unspecified; M15.9 Polyosteoarthritis, unspecified; Z71.3 Dietary counseling and surveillance; Z71.89 Other specified counseling
CPT/HCPCS: 82565; 84520; 74177; Q9967

== ENCOUNTER 2024-02-06 12:06 | Day surgery (SDC) | payer MEDICARE ==
[2024-02-05 11:48] VITALS: BMI 29.4
[~2024-02-06 12:06] MED LIST changes: +ONDANSETRON 4 MG/2 ML VIAL IVP PRN
[2024-02-06] MEDS: LACTATED RINGERS 1,000 ML IV SCH (12:40)
[2024-02-06 12:50] LABS: Glucose,Whole Blood 106 mg/dL (70-110)
[2024-02-06] MEDS ORDERED: fentaNYL (PF) 50 MCG/ML 2 ML AMP ONE (12:59)
[2024-02-06] MEDS ORDERED: LIDOCAINE 1% INJ 10MG/ML (20 ML MDV) ONE (12:59)
[2024-02-06] MEDS ORDERED: PROPOFOL 10 MG/ML 20 ML VIAL IV ONE (12:59)
[2024-02-06] MEDS: LIDOCAINE 2% (PF) 20 MG/ML 2 ML VIAL INHALATION ONE (13:22)
[2024-02-06 13:33] VITALS: TEMP 97.6
[2024-02-06 14:27] VITALS: BP 128/80; PULSE 72; RESP 15
--- NOTE | 2024-02-06 20:06 | OP ---
OPERATIVE REPORT DATE OF SERVICE : PROCEDURES PERFORMED: Bronchoscopy, bronchoalveolar lavage, and random bronchial washings. PREOPERATIVE DIAGNOSES: Chronic cough, and recurrent bronchitis. POSTOPERATIVE DIAGNOSIS: Chronic bronchitis. ANESTHESIA USED: IV conscious sedation. DESCRIPTION OF PROCEDURE: The patient was prepared according to the bronchoscopy protocol, brought into the bronchoscopy suite, O2 was applied via Ventimask. We monitored his O2 saturation continuously, blood pressure was intermittently monitored, and cardiac rhythm was continuously monitored. After IV conscious sedation, and adequate anesthesia, the bronchoscope was inserted through a bite block, and the vocal cords were visualized. Lidocaine was applied over the vocal cords, and then the bronchoscope was advanced further down. As we entered the trachea, there was significant inflammation of the tracheal wall, noted to be erythematous, inflamed, and some purulent secretions noted in the trachea. These were suctioned easily, then a thorough examination was done of the mohit, right upper lobe, right middle lobe, right lower lobe, left upper lobe, lingula, and left lower lobe. The mucosa was noted to be extremely inflamed throughout, the mucosa was bronchitic, swollen and edematous, and easily friable. Purulent secretions were lavaged from different segments of different lobes, and random washing was accomplished. The random BAL was also accomplished. Fluid was sent for different diagnostic studies. Procedure was well tolerated, no complications noted. MMODL / IJN: [id number] /
[2024-02-06 20:59] LABS: Appearance,BF Blood Tinged (Clear); RBC, Body Fluid 9100 /UL (0-2000)
[2024-02-08 10:45] LABS: Nucleated Cells, Body Fluid 2400 /UL
== END 2024-02-06 14:01 | disposition home or self-care (01) ==
LOC: ORWHC2ENDO 12:06
PROVIDERS: ATTEND Internal Medicine
DX: J42 Unspecified chronic bronchitis (principal); I10 Essential (primary) hypertension; E07.9 Disorder of thyroid, unspecified; M19.90 Unspecified osteoarthritis, unspecified site; Z85.72 Personal history of non-Hodgkin lymphomas; Z79.890 Hormone replacement therapy; Z79.899 Other long term (current) drug therapy
CPT/HCPCS: 88108; 88305; 89050; 87070; 87205; 87116; 87102; 87077; 87186; 87206; 31624; J2001 ×2; J3010; J2704

== ENCOUNTER 2024-03-14 09:38 | Inpatient (IN) | payer MEDICARE ==
--- NOTE | 2024-03-14 10:18 | ED ---
General Adult HPI - General Chief complaint: Shortness of Breath Stated complaint: SOB/Cough Time Seen by Provider: 03/14/24 09:55 Source: patient, RN notes reviewed, old records reviewed Mode of arrival: ambulatory Limitations: no limitations - History of Present Illness Initial comments: This is a 73-year-old male who presents to the emergency department with a past medical history significant for COPD and CLL. Patient comes in today because he states he has been having a cough for the last 2 months has been worked up multiple times by Dr. Ogden. Patient states yesterday he was coughing all day long again which is typical for him in the last few months. Patient states he also has not started having right-sided chest pain particularly when he takes a deep breath or cough. Patient denies any sputum production. Patient has any fever or chills. Patient denies any swelling to the legs or calf tenderness. Patient Nuys any chest pain when he is not coughing. Patient Nuys any anterior chest pain. Patient denies any abdominal pain patient Nuys any nausea or vomiting. - Related Data Home Medications Medication Instructions Recorded Confirmed Levothyroxine Sodium 88 mcg PO DAILY 07/22/20 03/14/24 Celecoxib [CeleBREX] 200 mg PO DAILY 02/01/22 03/14/24 Losartan [Cozaar] 50 mg PO HS 02/05/24 03/14/24 Budesonide/Formoterol Fumarate 2 puff INHALATION RT-BID 03/14/24 03/14/24 [Symbicort 160-4.5 Mcg Inhaler] Ipratropium-Albuterol Nebulize 3 ml INHALATION RT-QID PRN 03/14/24 03/14/24 [Duoneb 0.5 mg-3 mg/3 ml Soln] predniSONE 5 mg PO DAILY 03/14/24 03/14/24 Allergies Allergy/AdvReac Type Severity Reaction Status Date / Time No Known Allergies Allergy Verified 03/14/24 12:45 Review of Systems ROS Statement: Those systems with pertinent positive or pertinent negative responses have been documented in the HPI. ROS Other: All systems not noted in ROS Statement are negative. Past Medical History Past Medical History: Hypertension, Osteoarthritis (OA), Thyroid Disorder Additional Past Medical History / Comment(s): chronic cough-at times productive clear mucus-steroids December 2023,CHRONIC LYMPHOCYSTIC LEUKEMIA (IN REMISSION, DR. COBURN) History of Any Multi-Drug Resistant Organisms: None Reported Past Surgical History: Joint Replacement Additional Past Surgical History / Comment(s): BILATERAL HIP REPLACED. CATARACTS, COLONOSCOPYS. Past Anesthesia/Blood Transfusion Reactions: No Reported Reaction Past Psychological History: No Psychological Hx Reported Smoking Status: Never smoker Past Alcohol Use History: None Reported Past Drug Use History: None Reported - Past Family History Father Family Medical History: Cancer Additional Family Medical History / Comment(s): COLON CANCER General Exam - General Exam Comments Initial Comments: GENERAL: Patient is well-developed and well-nourished. Patient is nontoxic and well- hydrated and is in mild distress. ENT: Neck is soft and supple. No significant lymphadenopathy is noted. Oropharynx is clear. Moist mucous membranes. Neck has full range of motion without eliciting any pain. EYES: The sclera were anicteric and conjunctiva were pink and moist. Extraocular movements were intact and pupils were equal round and reactive to light. Eyelids were unremarkable. PULMONARY: Unlabored respirations. Good breath sounds bilaterally. No audible rales rhonchi or wheezing was noted. CARDIOVASCULAR: There is a regular rate and rhythm without any murmurs gallops or rubs. ABDOMEN: Soft and nontender with normal bowel sounds. SKIN: Skin is clear with no lesions or rashes and otherwise unremarkable. NEUROLOGIC: Patient is alert and oriented x3. Cranial nerves II through XII are grossly intact. Motor and sensory are also intact. Normal speech, volume and content. Symmetrical smile. MUSCULOSKELETAL: Normal extremities with adequate strength and full range of motion. No lower extremity swelling or edema. No calf tenderness. LYMPHATICS: No significant lymphadenopathy is noted PSYCHIATRIC: Normal psychiatric evaluation. Limitations: no limitations Course Vital Signs 03/14/24 03/14/24 09:40 11:42 Temperature 98.6 F Pulse Rate 87 81 Respiratory 18 18 Rate Blood Pressure 168/71 104/68 O2 Sat by Pulse 95 95 Oximetry Medical Decision Making - Medical Decision Making EKG is interpreted by herself. EKG shows a sinus rhythm at 83 bpm DE interval is 173 QRS 153 QT interval is 382 QTc is 422. Patient's EKG shows a right bundle branch block. Patient's EKG shows no ST segment elevation. Was pt. sent in by a medical professional or institution (, PA, LANDSCAPE DRAFTER, urgent care, hospital, or intermediate...) When possible be specific @ -No Did you speak to anyone other than the patient for history (EMS, parent, family, police, friend...)? What history was obtained from this source @ -No Did you review nursing and triage notes (agree or disagree)? Why? @ -I reviewed and agree with nursing and triage notes Were old charts reviewed (outside hosp., previous admission, EMS record, old EKG, old radiological studies, urgent care reports/EKG's, intermediate records)? Report findings @ -No old charts were reviewed Differential Diagnosis? @ -Differential Chest Pain: Stable Angina, Unstable Angina, STEMI, NSTEMI Aortic Dissection, Pneumothorax, Musculoskeletal, Esophageal Spasm GERD, Cholecystitis, Pancreatitis, Zoster, this is not meant to be an all-inclusive list. EKG interpreted by me (3pts min.). @ -As above X-rays interpreted by me (1pt min.). @ -Chest x-ray showed right lower lobe infiltrate CT interpreted by me (1pt min.). @ -CT of the chest showed a PE with surrounding inflammation or infarction U/S interpreted by me (1pt. min.). @ -None done What testing was considered but not performed or refused? (CT, X-rays, U/S, labs)? Why? @ -None What meds were considered but not given or refused? Why? @ -None Did you discuss the management of the patient with other professionals (professionals i.e. , PA, LANDSCAPE DRAFTER, lab, RT, psych nurse, psychiatric social worker, volunteer recruiter, teacher, ship's electronic warfare officer, block and case maker)? Give summary @ -I spoke with [facility] physicians and they agreed to admit the patient Was smoking cessation discussed for >3mins.? @ -No Was critical care preformed (if so, how long)? @ -No Were there social determinants of health that impacted care today? How? (Homelessness, low income, unemployed, alcoholism, drug addiction, transportation, low edu. Level, literacy, decrease access to med. care, snf, rehab)? @ -No Was there de-escalation of care discussed even if they declined (Discuss DNR or withdrawal of care, Hospice)? DNR status @ -No What co-morbidities impacted this encounter? (DM, HTN, Smoking, COPD, CAD, Cancer, CVA, ARF, Chemo, Hep., AIDS, mental health diagnosis, sleep apnea, morbid obesity)? @ -None Was patient admitted / discharged? Hospital course, mention meds given and route, prescriptions, significant lab abnormalities, going to OR and other pertinent info. @ -Patient was started on high-dose heparin. I spoke with [facility] he agreed to admit the patient. I consulted cardiology Undiagnosed new problem with uncertain prognosis? @ -No Drug Therapy requiring intensive monitoring for toxicity (Heparin, Nitro, Insulin, Cardizem)? @ -No Were any procedures done? @ -No Diagnosis/symptom? @ -Pulmonary embolism Acute, or Chronic, or Acute on Chronic? @ -Acute Uncomplicated (without systemic symptoms) or Complicated (systemic symptoms)? @ -Complicated Side effects of treatment? @ -No Exacerbation, Progression, or Severe Exacerbation? @ -No Poses a threat to life or bodily function? How? (Chest pain, [place], PA, pneumonia, PE, COPD, DKA, ARF, appy, cholecystitis, CVA, Diverticulitis, Homicidal, Suicidal, threat to staff... and all critical care pts) @ -Yes this could lead to hypoxia and endorgan dysfunction - Lab Data Result diagrams: 03/14/24 10:14 03/14/24 10:14 Lab Results 03/14/24 03/14/24 03/14/24 Range/Units 10:14 10:14 10:14 WBC 16.4 H (3.8-10.6) k/uL RBC 4.32 (4.30-5.90) m/uL Hgb 12.8 L (13.0-17.5) gm/dL Hct 38.5 L (39.0-53.0) % MCV 89.3 (80.0-100.0) fL MCH 29.7 (25.0-35.0) pg MCHC 33.3 (31.0-37.0) g/dL RDW 14.3 (11.5-15.5) % Plt Count 77 L (150-450) k/uL MPV 7.7 Neutrophils % 31 % Lymphocytes % 63 % Monocytes % 3 % Eosinophils % 0 % Basophils % 0 % Neutrophils # 5.1 (1.3-7.7) k/uL Lymphocytes # 10.4 H (1.0-4.8) k/uL Monocytes # 0.4 (0-1.0) k/uL Eosinophils # 0.1 (0-0.7) k/uL Basophils # 0.1 (0-0.2) k/uL PT 10.4 (10.0-12.5) sec INR 0.9 (<1.2) APTT 24.4 (22.0-30.0) sec D-Dimer 0.89 H (<0.60) mg/L FEU Sodium 138 (137-145) mmol/L Potassium 4.3 (3.5-5.1) mmol/L Chloride 106 (98-107) mmol/L Carbon Dioxide 24 (22-30) mmol/L Anion Gap 8 mmol/L BUN 20 (9-20) mg/dL Creatinine 1.14 (0.66-1.25) mg/dL Est GFR (CKD-EPI)AfAm 73 (>60 ml/min/1.73 sqM) Est GFR (CKD-EPI)NonAf 63 (>60 ml/min/1.73 sqM) Glucose 110 H (74-99) mg/dL Plasma Lactic Acid Parker (0.7-2.0) mmol/L Calcium 8.9 (8.4-10.2) mg/dL Magnesium 1.9 (1.6-2.3) mg/dL Total Bilirubin 4.2 H (0.2-1.3) mg/dL AST 40 (17-59) U/L ALT 15 (4-49) U/L Alkaline Phosphatase 73 (38-126) U/L Troponin I (0.000-0.034) ng/mL Total Protein 6.3 (6.3-8.2) g/dL Albumin 4.2 (3.5-5.0) g/dL Influenza Type A (PCR) (Not Detectd) Influenza Type B (PCR) (Not Detectd) RSV (PCR) (Not Detectd) SARS-CoV-2 (PCR) (Not Detectd) 03/14/24 03/14/24 03/14/24 Range/Units 10:14 10:14 10:16 WBC (3.8-10.6) k/uL RBC (4.30-5.90) m/uL Hgb (13.0-17.5) gm/dL Hct (39.0-53.0) % MCV (80.0-100.0) fL MCH (25.0-35.0) pg MCHC (31.0-37.0) g/dL RDW (11.5-15.5) % Plt Count (150-450) k/uL MPV Neutrophils % % Lymphocytes % % Monocytes % % Eosinophils % % Basophils % % Neutrophils # (1.3-7.7) k/uL Lymphocytes # (1.0-4.8) k/uL Monocytes # (0-1.0) k/uL Eosinophils # (0-0.7) k/uL Basophils # (0-0.2) k/uL PT (10.0-12.5) sec INR (<1.2) APTT (22.0-30.0) sec D-Dimer (<0.60) mg/L FEU Sodium (137-145) mmol/L Potassium (3.5-5.1) mmol/L Chloride (98-107) mmol/L Carbon Dioxide (22-30) mmol/L Anion Gap mmol/L BUN (9-20) mg/dL Creatinine (0.66-1.25) mg/dL Est GFR (CKD-EPI)AfAm (>60 ml/min/1.73 sqM) Est GFR (CKD-EPI)NonAf (>60 ml/min/1.73 sqM) Glucose (74-99) mg/dL Plasma Lactic Acid Parker 0.9 (0.7-2.0) mmol/L Calcium (8.4-10.2) mg/dL Magnesium (1.6-2.3) mg/dL Total Bilirubin (0.2-1.3) mg/dL AST (17-59) U/L ALT (4-49) U/L Alkaline Phosphatase (38-126) U/L Troponin I <0.012 (0.000-0.034) ng/mL Total Protein (6.3-8.2) g/dL Albumin (3.5-5.0) g/dL Influenza Type A (PCR) Not Detected (Not Detectd) Influenza Type B (PCR) Not Detected (Not Detectd) RSV (PCR) Not Detected (Not Detectd) SARS-CoV-2 (PCR) Not Detected (Not Detectd) Disposition Clinical Impression: Pulmonary embolism Disposition: ADMITTED IP TO THIS HOSP Referrals: Rosalino Holcomb MD [Primary Care Provider] - 1-2 days Time of Disposition: 14:00
[2024-03-14] MEDS: BENZONATATE 100 MG CAP PO STA (10:31)
[2024-03-14] MEDS: KETOROLAC 15 MG/ML 1 ML VIAL IVP STA (10:32)
[2024-03-14] MEDS: HYDROmorphone 0.5 MG/0.5 ML SYRINGE IVP STA (10:32)
[2024-03-14 10:58] LABS: Basophils # (A) 0.1 k/uL (0-0.2); Basophils % (A) 0 %; Eosinophils # (A) 0.1 k/uL (0-0.7); Eosinophils % (A) 0 %; HCT 38.5 % (39.0-53.0); HGB 12.8 gm/dL (13.0-17.5); Lymphocytes # (A) 10.4 k/uL (1.0-4.8); Lymphocytes % (A) 63 %; MCH 29.7 pg (25.0-35.0); MCHC 33.3 g/dL (31.0-37.0); MCV 89.3 fL (80.0-100.0); Mean Platelet Volume 7.7; Monocytes # (A) 0.4 k/uL (0-1.0); Monocytes % (A) 3 %; Neutrophils # (A) 5.1 k/uL (1.3-7.7); Neutrophils % (A) 31 %; RBC 4.32 m/uL (4.30-5.90); RDW 14.3 % (11.5-15.5); WBC 16.4 k/uL (3.8-10.6)
[2024-03-14 11:03] LABS: INR 0.9 (<1.2); Partial Thromboplastin Time 24.4 sec (22.0-30.0); Prothrombin Time 10.4 sec (10.0-12.5)
[2024-03-14 11:12] LABS: ALT 15 U/L (4-49); AST 40 U/L (17-59); African American GFR (CKD) 73 (>60 ml/min/1.73 sqM); Albumin 4.2 g/dL (3.5-5.0); Alkaline Phosphatase 73 U/L (38-126); Anion Gap 8 mmol/L; Blood Urea Nitrogen 20 mg/dL (9-20); Calcium 8.9 mg/dL (8.4-10.2); Carbon Dioxide 24 mmol/L (22-30); Chloride 106 mmol/L (98-107); Glucose 110 mg/dL (74-99); Magnesium 1.9 mg/dL (1.6-2.3); Non-African American GFR(CKD) 63 (>60 ml/min/1.73 sqM); Potassium 4.3 mmol/L (3.5-5.1); Sodium 138 mmol/L (137-145); Total Bilirubin 4.2 mg/dL (0.2-1.3); Total Protein 6.3 g/dL (6.3-8.2)
--- NOTE | 2024-03-14 11:28 | XR ---
EXAMINATION TYPE: XR chest 2V DATE OF EXAM: 03/14/2024 COMPARISON: 02/13/2024 TECHNIQUE: PA and lateral views submitted. HISTORY: Shortness of breath FINDINGS: Bilateral lower lobe atelectasis or infiltrate in the right. Limited inspiration. Atherosclerotic lucinda nge aorta.. Heart size normal and no overt failure. Osseous structures demonstrate hypertrophic and degenerative changes of the spine. IMPRESSION: 1. Bibasilar atelectasis or early infiltrate greater on the right, correlate clinically.
[2024-03-14 12:02] LABS: Platelet Count 77 k/uL (150-450)
--- NOTE | 2024-03-14 13:47 | CT ---
EXAMINATION TYPE: CT chest angio for PE CT DLP: 398.6 mGycm, Automated exposure control for dose reduction was used. DATE OF EXAM: 03/14/2024 1:16 PM COMPARISON: 08/13/2023 CLINICAL INDICATION:Male, 73 years old with history of Chest pain, cough elevated D-dimer; domi/chest pain on right side/ unable to lay flat TECHNIQUE/CONTRAST: CTA scan of the thorax is performed with IV Contrast, patient injected with 100 mL of Isovue 370, MIP images are created and reviewed these are created on a separate workstation.. FINDINGS: Pulmonary Artery: Filling defect within the right lower lobe pulmonary arterial vasculature series 41 1 image 96.. No evidence for right heart strain. Additional tiny filling defect in the left lower lo be series 411 image 110 The pulmonary artery is of normal size. RV LV/= 35/387mm = 0.92 Lungs/Pleura: Right lower lobe hazy groundglass opacities in the area of pulmonary embolus. No eviden ce of focal consolidation, pleural effusion or pneumothorax. Airway: Large airways are patent. Heart: Heart is within normal limits for size. Mild atherosclerosis of the arterial vasculature. Vasculature: No evidence of aortic aneurysm. Mediastinum: No gross evidence of adenopathy. Musculoskeletal: No acute osseous abnormalities Soft Tissues/lymph nodes: Unremarkable. Lower neck: No significant findings. Upper Abdomen: The spleen is enlarged for size measuring up to 20.0 cm. IMPRESSION: 1. Acute right lower lobe pulmonary embolus and possible small tiny left subsegmental lower lobe pul monary embolus.. Possible early pulmonary infarct in the right lower lobe being supplied by this vess el. 2. Similar Splenomegaly. Findings communicated to Dr. Pb Montelongo MD on 03/14/2024 1:[address] Gino Duran.
[2024-03-14] MEDS: HEPARIN SODIUM 1,000 UN/ML (10ML VL) IV ONE (14:04)
[2024-03-14] MEDS: HEPARIN SOD,PORK IN 0.45% NACL 25,000 UNIT in 0.45% NACL 1 250ML.BAG IV SCH (14:04)
[2024-03-14] MEDS: SODIUM CHLORIDE 0.9% 1,000 ML IV ONE (14:06)
[2024-03-14] MEDS ORDERED: IPRATROPIUM-ALBUTEROL 3 ML NEB INHALATION PRN (14:22)
--- NOTE | 2024-03-14 15:39 | P.HPIM ---
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 He presented to the emergency department with shortness of breath and right-sided chest pain. Patient reports development of worsening shortness of breath and right-sided chest pain yesterday. Patient reports pain would not let up and has been persistent and sharp accompanied by worsening shortness of breath over the past 24 hours. He denies having any fevers, chills, headache, lightheadedness, dizziness, palpitations, abdominal pain, nausea, vomiting, or noticing any weakness/swelling/numbness/tingling in his extremities. Patient reports he does not receive any treatment for his CLL and is just being monitored closely, he reports he only recently began having problems with his labs and that is because he has had a chronic worsening cough x 2 months and has been put on steroids by laundry press operator Dr. Fierro. Upon arrival to our facility, patient underwent evaluation in the emergency department. Vital signs upon arrival show blood pressure 168/71, heart rate 87, respiratory rate 18, temp 98.6 F, and SpO2 of 95% on room air. EKG was completed showing normal sinus rhythm at 83 bpm with T wave inversion in inferior leads III and aVF as well as leads V1 through V4 (which is unchanged when compared to previous EKG completed 08/31/2022 on personal review and interpretation). Chest x-ray completed showing bibasilar atelectasis/infiltrate with right greater than left. Labs were completed and reviewed. CBC showing leukocytosis with WBC count of 16.4 and bicytopenia with hemoglobin of 12.8 and platelet count of 77. BMP unremarkable. Blood glucose 110. Liver profile showing hyperbilirubinemia with bilirubin of 4.2 (this has been elevated in the past documented as high as 3.0, most recent bilirubin docum ented was 1.0 on 08/28/2023). Troponin was negative at less than 0.012. Coagulation profile showing elevated D-dimer of 0.89. Influenza A, influenza B, COVID, and RSV were negative. CTA chest showing acute right lower lobe pulmonary emboli and possible small left subsegmental lower lobe pulmonary emboli with concerns of pulmonary infarct in the right lower lobe and previously known splenomegaly. Patient was started on high intensity heparin infusion and admitted under our services to stepdown unit with consultation to pulmonology, hematology/oncology, and cardiology. Review of systems: Pertinent positives and negatives as discussed in HPI, a complete review of systems was performed and all other systems are negative. Physical exam: Vital signs reviewed and stable. General: Nontoxic, no distress and appears stated age. Derm: Skin warm and dry, normal coloration for ethnicity. Head: Atraumatic, normocephalic and symmetric. Eyes: EOMs intact, no lid lag, and anicteric sclera Mouth: no lip lesions, mucus membranes moist Cardiovascular: regular rate and rhythm with normal S1S2, systolic murmur, positive posterior tibial pulses bilaterally, and cap refill < 2 seconds. Lungs: Respirations even, regular, and unlabored on room air. Lungs CTA bilaterally, no rhonchi, no rales, no wheezing, and no accessory muscle usage. Abdominal: soft, nontender to palpation, no guarding, no appreciable organomegaly Ext: ROM intact. No gross muscle atrophy, no edema, no contractures Neuro: Speech clear, face symmetrical and CN II-XII grossly intact with no noted focal neuro deficits Psych: Alert and oriented to person, place, time, and situation. Appropriate and pleasant affect. Assessment and Plan of Care: Acute pulmonary emboli with right-sided pulmonary infarct Right Lower Extremity DVT popliteal vein History of CLL Leukocytosis and Bicytopenia with anemia and thrombocytopenia, chronic secondary to CLL -Pulmonology consulted, appreciate recommendations -Hematology/oncology consulted, appreciate recommendations -Cardiology consulted, appreciate recommendations -Patient to remain on continuous telemetry monitoring -Continue high intensity heparin infusion 16 units/kg/h with close monitoring of PTT for goal therapeutic range of 44 to 79 seconds. -Bilateral lower extremity Dopplers completed positive for right lower extremity DVT of popliteal vein -Echocardiogram to be completed Hyperbilirubinemia Right upper quadrant and right-sided chest pain, likely secondary to acute PE ho wever patient also has hyperbilirubinemia of unclear cause -Order placed for liver ultrasound, will follow-up with results. Hypertension Continue daily medication regimen with losartan 50 mg nightly. Hypothyroidism Continue daily medication regimen with levothyroxine 88 mcg daily. History of COPD/asthma Not home oxygen dependent and not in acute exacerbation. Continue Symbicort 160-4.5 mcg inhaler 2 puffs twice daily and placed on DuoNebs as needed for shortness of breath and/or wheezing. Data and Imaging reviewed: As stated above in HPI The patient is admitted with an anticipated greater than 2 midnight stay for evaluation of acute pulmonary emboli CODE STATUS: Full code DVT prophylaxis: Heparin Discussed with: Patient and ED physician. Attempts made to call patient's daughterFlower at [phone], however no answer and message stated voicemail was full. Anticipated discharge date: Pending clinical course Anticipated discharge place: Home Patient was seen independently by Nurse Practitioner. This document was prepared using [employer] dictation software. Please allow for errors in probation and parole officer while rare they do occur. Blaine Velez NP rendered care for this patient independently, reviewed the findings and plan as documented in the note above. I did not physically speak with or examine the patient on this date. Past Medical History Past Medical History: Hypertension, Osteoarthritis (OA), Thyroid Disorder Additional Past Medical History / Comment(s): chronic cough-at times productive clear mucus-steroids December 2023,CHRONIC LYMPHOCYSTIC LEUKEMIA (IN REMISSION, DR. REED) History of Any Multi-Drug Resistant Organisms: None Reported Past Surgical History: Joint Replacement Additional Past Surgical History / Comment(s): BILATERAL HIP REPLACED. CATARACTS, COLONOSCOPYS. Past Anesthesia/Blood Transfusion Reactions: No Reported Reaction Past Psychological History: No Psychological Hx Reported Smoking Status: Never smoker Past Alcohol Use History: None Reported Past Drug Use History: None Reported - Past Family History Father Family Medical History: Cancer Additional Family Medical History / Comment(s): COLON CANCER Medications and Allergies Home Medications Medication Instructions Recorded Confirmed Type Levothyroxine Sodium 88 mcg PO DAILY 07/22/20 03/14/24 History Celecoxib [CeleBREX] 200 mg PO DAILY 02/01/22 03/14/24 History Losartan [Cozaar] 50 mg PO HS 02/05/24 03/14/24 History Budesonide/Formoterol Fumarate 2 puff INHALATION RT-BID 03/14/24 03/14/24 History [Symbicort 160-4.5 Mcg Inhaler] Ipratropium-Albuterol Nebulize 3 ml INHALATION RT-QID PRN 03/14/24 03/14/24 History [Duoneb 0.5 mg-3 mg/3 ml Soln] predniSONE 5 mg PO DAILY 03/14/24 03/14/24 History Allergies Allergy/AdvReac Type Severity Reaction Status Date / Time No Known Allergies Allergy Verified 03/14/24 12:45 Physical Exam Vitals: Vital Signs Temp Pulse Resp BP Pulse Ox 03/14/24 11:42 81 18 104/68 95 03/14/24 09:40 98.6 F 87 18 168/71 95 Intake and Output 03/13/24 03/14/24 03/14/24 22:59 06:59 14:59 Other: Weight 90.718 kg Results CBC & Chem 7: 03/15/24 10:28 03/15/24 10:28 Labs: Abnormal Lab Results - Last 24 Hours (Table) 03/14/24 03/14/24 03/14/24 Range/Units 10:14 10:14 10:14 WBC 16.4 H (3.8-10.6) k/uL Hgb 12.8 L (13.0-17.5) gm/dL Hct 38.5 L (39.0-53.0) % Plt Count 77 L (150-450) k/uL Lymphocytes # 10.4 H (1.0-4.8) k/uL D-Dimer 0.89 H (<0.60) mg/L FEU Glucose 110 H (74-99) mg/dL Total Bilirubin 4.2 H (0.2-1.3) mg/dL
--- NOTE | 2024-03-14 16:30 | US ---
EXAMINATION TYPE: US venous doppler duplex LE BI DATE OF EXAM: 03/14/2024 3:59 PM COMPARISON: NONE CLINICAL INDICATION: Male, 73 years old with history of PE; PE SIDE PERFORMED: bilateral TECHNIQUE: The lower extremity deep venous system is examined utilizing real time linear array sonog ceasar with graded compression, doppler sonography and color-flow sonography. VESSELS IMAGED: Common Femoral Vein Deep Femoral Vein Greater Saphenous Vein * Femoral Vein Popliteal Vein Small Saphenous Vein * Proximal Calf Veins (* superficial vessels) Right Leg: Positive for DVT, right popliteal vein extending into proximal calf vein Left Leg: no evidence of DVT IMPRESSION: Deep vein thrombosis within the right popliteal vein extending into the calf veins.
--- NOTE | 2024-03-14 17:14 | CA ---
Transthoracic Echo Report Name: Filiberto Delacruz Age: 73 Gender: M : 1950 Exam Date: 03/14/2024 15:06 Exam Location: [facility] Ht (in): 71 Wt (lb): 200 Ordering Physician: Pb Montelongo MD Attending/Referring Phys: Clothes Ironer Sruthi Sarkar RDCS Procedure CPT: Indications: Pulmonary Embolism Cardiac Hx: Technical Quality: Good Contrast 1: Total Dose (mL): Contrast 2: Total Dose (mL): MEASUREMENTS (Male / Female) Normal Values 2D ECHO LV Diastolic Diameter PLAX 4.6 cm 4.2 - 5.9 / 3.9 - 5.3 cm LV Systolic Diameter PLAX 3.0 cm IVS Diastolic Thickness 1.3 cm 0.6 - 1.0 / 0.6 - 0.9 cm LVPW Diastolic Thickness 1.1 cm 0.6 - 1.0 / 0.6 - 0.9 cm LV Relative Wall Thickness 0.5 RV Internal Dim ED PLAX 4.0 cm LA Systolic Diameter LX 3.9 cm 3.0 - 4.0 / 2.7 - 3.8 cm LV Diastolic Volume MOD 4C 141.7 cm??? LV Systolic Volume MOD 4C 67.8 cm??? LV Ejection Fraction MOD 4C 52.2 % LV Cardiac Index MOD 4C 2719.5 cm???/min???m??? LV Diastolic Length 4C 9.2 cm LV Systolic Length 4C 7.2 cm LV Diastolic Volume MOD 2C 115.8 cm??? LV Systolic Volume MOD 2C 56.6 cm??? LV Ejection Fraction MOD 2C 51.2 % LV Cardiac Index MOD 2C 2179.2 cm???/min???m??? LV Diastolic Length 2C 8.3 cm LV Systolic Length 2C 7.1 cm LA Volume 54.6 cm??? 18 - 58 / 22 - 52 cm??? LA Volume Index 25.4 cm???/m??? 16 - 28 cm???/m??? M-MODE Aortic Root Diameter MM 3.8 cm AV Cusp Separation MM 2.7 cm DOPPLER AV Peak Velocity 150.2 cm/s AV Peak Gradient 9.0 mmHg MV Area PHT 2.5 cm??? Mitral E Point Velocity 107.1 cm/s Mitral A Point Velocity 139.9 cm/s Mitral E to A Ratio 0.8 MV Deceleration Time 306.8 ms TR Peak Velocity 319.9 cm/s TR Peak Gradient 40.9 mmHg Right Ventricular Systolic Press 44.6 mmHg FINDINGS Left Ventricle Left ventricular ejection fraction is estimated at 55-60 %. Left ventricular cavity size normal. Normal left ventricular systolic function with no obvious regional wall motion abnormalities. Mildly increased left ventricular wall thickness. Right Ventricle Moderate right ventricular dilatation. Mild to moderate pulmonary hypertension. Right ventricular systolic pressure estimated at 45 mm hg. Right Atrium Normal right atrial size. No right atrial thrombus or mass seen. Normal right atrial size. No right atrial thrombus or mass seen. Left Atrium Normal left atrial size. No left atrial thrombus or mass present. Mitral Valve Mitral valve thickened. Mild mitral regurgitation. Mild prolapse of the posterior mitral valve leaflets Aortic Valve Trileaflet aortic valve. No aortic valve stenosis or regurgitation. Tricuspid Valve Structurally normal tricuspid valve. Mild tricuspid regurgitation. Pulmonic Valve Structurally normal pulmonic valve. No pulmonic regurgitation. Pericardium No pericardial effusion. No pleural effusion. Aorta Mild aortic dilatation at the level of the sinuses of valsalva 38 mm CONCLUSIONS 1. Normal left ventricle size and systolic function 2. Dilated right ventricle with mild to moderate pulmonary hypertension 3. Mild mitral regurgitation with mild prolapse of the posterior mitral valve leaflets 4. Mild tricuspid regurgitation Previewed by: Dr. Rosalina Zhou MD (Electronically Signed) Final Date: 14 March 2024 17:13
[2024-03-14] MEDS: SYMBICORT 160-4.5 MCG INHALER INHALATION SCH (19:37)
[2024-03-14] MEDS: LOSARTAN 50 MG TAB PO SCH (20:47)
[2024-03-14] MEDS: ACETAMINOPHEN TAB 325 MG TAB PO STA (21:49)
[2024-03-15] MEDS: LEVOTHYROXINE 88 MCG TAB PO SCH (08:37)
[2024-03-15] MEDS ORDERED: HYDROcodone/APAP 5-325MG 1 EACH TAB PO PRN (09:11)
[2024-03-15] MEDS: Apixaban Initiation Dose--VTE 5 MG TAB PO SCH (09:57)
[2024-03-15] MEDS: MORPHINE SULFATE 4 MG/ML SYRINGE IV PRN (09:57)
[2024-03-15 10:46] LABS: HCT 38.3 % (39.0-53.0); HGB 12.1 gm/dL (13.0-17.5); MCH 28.9 pg (25.0-35.0); MCHC 31.5 g/dL (31.0-37.0); MCV 91.6 fL (80.0-100.0); Mean Platelet Volume 7.8; RBC 4.18 m/uL (4.30-5.90); RDW 14.2 % (11.5-15.5); WBC 18.9 k/uL (3.8-10.6)
[2024-03-15 11:41] LABS: African American GFR (CKD) 81 (>60 ml/min/1.73 sqM); Anion Gap 6 mmol/L; Blood Urea Nitrogen 18 mg/dL (9-20); Calcium 8.9 mg/dL (8.4-10.2); Carbon Dioxide 25 mmol/L (22-30); Chloride 108 mmol/L (98-107); Glucose 126 mg/dL (74-99); Non-African American GFR(CKD) 70 (>60 ml/min/1.73 sqM); Potassium 4.4 mmol/L (3.5-5.1); Sodium 139 mmol/L (137-145)
--- NOTE | 2024-03-15 12:03 | P.CNPUL ---
History of Present Illness Consult date: 03/15/24 Reason for consult: pulmonary embolism History of present illness: This is a 73-year-old male patient, known history of COPD and chronic lympho cytic leukemia, not receiving any treatment as the patient's hematologic profile has been stable with some mild thrombocytopenia. The patient came into the hospital because of pleuritic right-sided chest pain. No fever. No chills. No night sweats. Hemodynamically stable and the patient's pulse ox was 95% on room air oxygen. Cardiac rhythm was sinus. Nonspecific EKG changes were noted. Chest x-ray showed some atelectatic changes in the right lung base. Based on that, the patient underwent a CT angiogram that showed a right lower lobe pulmonary embolism and possibly some subtle segmental emboli in the left lower lobe and atelectatic changes in the right lung base. He does have underlying splenomegaly related to CLL. The patient was started on IV heparin. Furthermore, Doppler of the lower extremities were done and the patient was found to have a right popliteal DVT. Currently on IV heparin. No new complaints. Pleurisy has been improving since yesterday. Hemodynamically sta ble. No other new complaints for now. Follow-up platelet count from today is still pending. He was stable at 12.1. Electrolytes are all stable. The viral screen has been negative. No previous history of DVT or pulmonary embolism. No immobility. No travels. No other complaints otherwise for now. Review of Systems Constitutional: Denies chills, Denies fever Eyes: denies as per HPI, denies blurred vision, denies bulging eye, denies decreased vision, denies diplopia, denies discharge, denies dry eye, denies irritation, denies itching, denies pain, denies photophobia, denies loss of peripheral vision, denies loss of vision, denies tunnel vision/blind spots Ears: deny: decreased hearing, ear discharge, earache, tinnitus Ears, nose, mouth and throat: Reports as per HPI Breasts: absent: as per HPI, gynecomastia Cardiovascular: Reports chest pain Respiratory: Reports as per HPI Gastrointestinal: Reports as per HPI Genitourinary: Reports as per HPI Musculoskeletal: Reports as per HPI Musculoskeletal: absent: ankle pain, ankle stiffness, ankle swelling, as per HPI, elbow pain, elbow stiffness, elbow swelling, foot pain, foot stiffness, foot swelling, hand pain, hand stiffness, hand swelling, hip pain, hip stiffness, hip swelling, knee pain, knee stiffness, knee swelling, shoulder pain, shoulder stiffness, shoulder swelling, wrist pain, wrist stiffness, wrist swelling Integumentary: Reports as per HPI Neurological: Reports as per HPI Psychiatric: Reports as per HPI Endocrine: Reports as per HPI Hematologic/Lymphatic: Reports as per HPI Allergic/Immunologic: Reports as per HPI Past Medical History Past Medical History: Hypertension, Osteoarthritis (OA), Thyroid Disorder Additional Past Medical History / Comment(s): chronic cough-at times productive clear mucus-steroids December 2023,CHRONIC LYMPHOCYSTIC LEUKEMIA (IN REMISSION, DR. COBURN) History of Any Multi-Drug Resistant Organisms: None Reported Past Surgical History: Joint Replacement Additional Past Surgical History / Comment(s): BILATERAL HIP REPLACED. CATARACTS, COLONOSCOPYS. Past Anesthesia/Blood Transfusion Reactions: No Reported Reaction Past Psychological History: No Psychological Hx Reported Additional Psychological History / Comment(s): HAS HAD A BRAIN INJURY, DOES NOT DRIVE Smoking Status: Never smoker Past Alcohol Use History: None Reported Past Drug Use History: None Reported - Past Family History Father Family Medical History: Cancer Additional Family Medical History / Comment(s): COLON CANCER Medications and Allergies Home Medications Medication Instructions Recorded Confirmed Type Levothyroxine Sodium 88 mcg PO DAILY 07/22/20 03/14/24 History Celecoxib [CeleBREX] 200 mg PO DAILY 02/01/22 03/14/24 History Losartan [Cozaar] 50 mg PO HS 02/05/24 03/14/24 History Budesonide/Formoterol Fumarate 2 puff INHALATION RT-BID 03/14/24 03/14/24 History [Symbicort 160-4.5 Mcg Inhaler] Ipratropium-Albuterol Nebulize 3 ml INHALATION RT-QID PRN 03/14/24 03/14/24 History [Duoneb 0.5 mg-3 mg/3 ml Soln] predniSONE 5 mg PO DAILY 03/14/24 03/14/24 History Allergies Allergy/AdvReac Type Severity Reaction Status Date / Time No Known Allergies Allergy Verified 03/14/24 12:45 Physical Exam Vitals: Vital Signs Temp Pulse Pulse Resp BP BP Pulse Ox 03/15/24 09:47 95 03/15/24 08:36 98.6 F 85 16 155/77 95 03/15/24 04:00 82 16 133/74 95 03/15/24 00:00 72 16 127/61 98 03/14/24 20:35 98.1 F 76 16 125/60 95 03/14/24 19:53 87 18 127/55 96 03/14/24 18:00 80 18 129/79 98 Intake and Output 03/14/24 03/15/24 03/15/24 22:59 06:59 14:59 Intake Total 108.86 625.277 81.875 Balance 108.86 625.277 81.875 Intake: Intake, IV Titration 108.86 85.277 81.875 Amount Heparin Sod,Pork in 0.45% 108.86 85.277 81.875 NaCl 25,000 unit In 0.45 % NaCl 1 250ml.bag @ 18 UNITS/KG/HR 16.329 mls/hr IV .[id number] [facility] Rx#: [id number] Oral 540 Other: Voiding Method Toilet Toilet Toilet # Voids 1 Weight 90.718 kg 92.3 kg The patient appeared well nourished and normally developed. Vital signs as documented. Head exam is unremarkable. No scleral icterus or corneal arcus noted. Neck is without jugular venous distension, thyromegaly, or carotid bruits. Carotid upstrokes are brisk bilaterally. Lungs are clear to auscultation and percussion. Cardiac exam reveals the PMI to be normally sized and situated. Rhythm is regular. First and second heart sounds normal. No murmurs, rubs or gallops. Abdominal exam reveals normal bowel sounds, no masses, no organomegaly and no aortic enlargement. Extremities are nonedematous and both femoral and pedal pulses are normal. Examination of the skin revealed no evidence of significant rashes, suspicious appearing nevi or other concerning lesions. Neurologically, the patient is awake and alert and the patient does not have any focal neurological deficit. Cranial nerves are essentially intact. Results - Laboratory Findings CBC and BMP: 03/15/24 10:28 03/15/24 10:28 PT/INR, D-dimer PT 10.4 sec (10.0-12.5) 03/14/24 10:14 INR 0.9 (<1.2) 03/14/24 10:14 D-Dimer 0.89 mg/L FEU (<0.60) H 03/14/24 10:14 Abnormal lab findings: Abnormal Labs 03/14/24 03/14/24 03/14/24 10:14 10:14 10:14 WBC 16.4 H RBC Hgb 12.8 L Hct 38.5 L Plt Count 77 L Lymphocytes # 10.4 H APTT D-Dimer 0.89 H Chloride Glucose 110 H Total Bilirubin 4.2 H 03/14/24 03/15/24 03/15/24 20:00 02:58 10:28 WBC 18.9 H RBC 4.18 L Hgb 12.1 L Hct 38.3 L Plt Count Lymphocytes # APTT 132.7 H* 64.5 H D-Dimer Chloride Glucose Total Bilirubin 03/15/24 10:28 WBC RBC Hgb Hct Plt Count Lymphocytes # APTT D-Dimer Chloride 108 H Glucose 126 H Total Bilirubin - Diagnostic Findings Chest x-ray: image reviewed CT scan - chest: image reviewed Assessment and Plan Plan: Acute pulm embolism with a right lower extremity popliteal DVT, Unprovoked Acute pleuritic right-sided chest pain, improving secondary to pulmonary Right basilar atelectatic changes, related to pulmonary embolism COPD, currently inactive and stable CLL Chronic thrombocytopenia secondary to CLL Chronic splenomegaly secondary to CLL Hypertension Hypothyroidism Plan Clinically stable and hemodynamically stable Discontinue IV heparin and switch this patient to anticoagulation with Eliquis Monitor the platelet count and monitor the patient's hematologic profile and watch for any signs of bleeding Is an unprovoked event. The patient will need anticoagulation for now for at least 6 months to be followed up by hematology oncology. Will continue to follow make further condition based on his progress. Based on echocardiogram but also needed to assess for pulm hypertension and RV strain. Continue Symbicort maintenance Continue updrafts with albuterol/ipratropium
[2024-03-15 12:11] LABS: Platelet Count 89 k/uL (150-450)
--- NOTE | 2024-03-15 12:13 | US ---
EXAMINATION TYPE: US liver DATE OF EXAM: 03/15/2024 COMPARISON: 03/14/2024 CLINICAL INDICATION: Male, 73 years old with history of hyperbilirubinemia; hyperbilirubinemia TECHNIQUE: Multiple sonographic images of the right upper quadrant are obtained. FINDINGS: EXAM MEASUREMENTS: Liver Length: 12.7 cm Gallbladder Wall: 0.3 cm Right Kidney: 9.6 x 5.4 x 5.0 cm CAR LUBRICATOR NOTES: *Technical limitations due to large amount of overlying bowel gas Pancreas: Obscured by bowel gas Liver: only seen intercostally, appears wnl as visualized Gallbladder: no evidence of stones, possible sludge Evidence for sonographic Meredith's sign: no CBD: Obscured by overlying bowel gas Right Kidney: no evidence of hydronephrosis IMPRESSION: 1. No evidence for acute process. 2. Biliary sludge.
[2024-03-15] MEDS: SODIUM CHLORIDE 0.9% 1,000 ML IV SCH (12:45)
--- NOTE | 2024-03-15 13:20 | P.CONS ---
History of Present Illness - Reason for Consult Consult date: 03/15/24 Pulmonary embolism - Chief Complaint Right chest pain - History of Present Illness Mr. Delacruz is a 73-year-old gentleman with a past medical history significant for CLL on observation as well as COPD for whom we are consulted regarding pulmonary embolism. He noted development of right-sided chest pain and worsening dyspnea on 03/13/2024. When the pain became persistent, he decided to present to the ED for additional management. He notes having had mild trauma leaning into his lawn more with his right lower extremity resulting in some bruising. He denies any immobility from this. He denies any recent surgery, illness, trauma resulting in immobility, or recent prolonged travel. He denies any constitutional symptoms including fevers, chills, night sweats, lymphadenopathy, anorexia, unexplained weight loss. On presentation, he was afebrile without tachycardia or tachypnea with blood p ressure 168/71 and saturating well on room air. Labs revealed overall stable cell counts when compared to prior measures in our clinic with WBC 16.4 (absolute lymphocyte count 10.4), hemoglobin 12.8 (MCV 89.3), platelets 77. D- dimer was elevated at 0.89. CMP revealed total bilirubin of 4.2 with no other metabolic abnormalities. Troponin was negative. Viral PCR for influenza A/B, RSV, and COVID were negative. Chest x-ray noted bibasilar atelectasis or early infiltrate on the right. CT angiography of the chest noted acute right lower lobe pulmonary embolus and possible small tiny left subsegmental left lower lobe pulmonary embolus. Possible early pulmonary infarct in the right lower lobe was noted along with stable splenomegaly compared to imaging in August 2023. Venous Dopplers noted DVT within the right popliteal vein extending to the calf veins. Echocardiogram revealed dilated right ventricle with mild to moderate pulmonary hypertension with otherwise normal ejection fraction of 55 to 60%. He was started on heparin drip with plans to transition to therapeutic Eliquis 10 mg twice daily today. Review of Systems 14 point review of systems was conducted with pertinent positives and negatives as noted per HPI Past Medical History Past Medical History: Hypertension, Osteoarthritis (OA), Thyroid Disorder Additional Past Medical History / Comment(s): chronic cough-at times productive clear mucus-steroids December 2023,CHRONIC LYMPHOCYSTIC LEUKEMIA (IN REMISSION, DR. REED) History of Any Multi-Drug Resistant Organisms: None Reported Past Surgical History: Joint Replacement Additional Past Surgical History / Comment(s): BILATERAL HIP REPLACED. CATARACTS, COLONOSCOPYS. Past Anesthesia/Blood Transfusion Reactions: No Reported Reaction Past Psychological History: No Psychological Hx Reported Additional Psychological History / Comment(s): HAS HAD A BRAIN INJURY, DOES NOT DRIVE Smoking Status: Never smoker Past Alcohol Use History: None Reported Past Drug Use History: None Reported - Past Family History Father Family Medical History: Cancer Additional Family Medical History / Comment(s): COLON CANCER Medications and Allergies Home Medications Medication Instructions Recorded Confirmed Type Levothyroxine Sodium 88 mcg PO DAILY 07/22/20 03/14/24 History Celecoxib [CeleBREX] 200 mg PO DAILY 02/01/22 03/14/24 History Losartan [Cozaar] 50 mg PO HS 02/05/24 03/14/24 History Budesonide/Formoterol Fumarate 2 puff INHALATION RT-BID 03/14/24 03/14/24 History [Symbicort 160-4.5 Mcg Inhaler] Ipratropium-Albuterol Nebulize 3 ml INHALATION RT-QID PRN 03/14/24 03/14/24 History [Duoneb 0.5 mg-3 mg/3 ml Soln] predniSONE 5 mg PO DAILY 03/14/24 03/14/24 History Allergies Allergy/AdvReac Type Severity Reaction Status Date / Time No Known Allergies Allergy Verified 03/14/24 12:45 Physical Exam Vitals: Vital Signs Temp Pulse Pulse Resp BP BP Pulse Ox 03/15/24 09:47 95 03/15/24 08:36 98.6 F 85 16 155/77 95 03/15/24 04:00 82 16 133/74 95 03/15/24 00:00 72 16 127/61 98 03/14/24 20:35 98.1 F 76 16 125/60 95 03/14/24 19:53 87 18 127/55 96 03/14/24 18:00 80 18 129/79 98 03/14/24 11:42 81 18 104/68 95 Intake and Output 03/14/24 03/15/24 03/15/24 22:59 06:59 14:59 Intake Total 108.86 625.277 81.875 Balance 108.86 625.277 81.875 Intake: Intake, IV Titration 108.86 85.277 81.875 Amount Heparin Sod,Pork in 0.45% 108.86 85.277 81.875 NaCl 25,000 unit In 0.45 % NaCl 1 250ml.bag @ 18 UNITS/KG/HR 16.329 mls/hr IV .[id number] [facility] Rx#: [id number] Oral 540 Other: Voiding Method Toilet Toilet # Voids 1 Weight 90.718 kg 92.3 kg - Constitutional General appearance: cooperative, no acute distress - EENT Eyes: EOMI - Neck Neck: no lymphadenopathy - Respiratory Respiratory: right: other (Inspiratory crackles in the right lung base) - Cardiovascular Rhythm: regular - Gastrointestinal General gastrointestinal: no distended, soft - Integumentary Ecchymosis on the upper extremities bilaterally - Neurologic Neurologic: CNII-XII intact - Psychiatric Psychiatric: A&O x's 3, appropriate affect, intact judgment & insight Results CBC & Chem 7: 03/15/24 10:28 03/15/24 10:28 Labs: Abnormal Lab Results - Last 24 Hours (Table) 03/14/24 03/14/24 03/14/24 Range/Units 10:14 10:14 10:14 WBC 16.4 H (3.8-10.6) k/uL Hgb 12.8 L (13.0-17.5) gm/dL Hct 38.5 L (39.0-53.0) % Plt Count 77 L (150-450) k/uL Lymphocytes # 10.4 H (1.0-4.8) k/uL APTT (22.0-30.0) sec D-Dimer 0.89 H (<0.60) mg/L FEU Glucose 110 H (74-99) mg/dL Total Bilirubin 4.2 H (0.2-1.3) mg/dL 03/14/24 03/15/24 Range/Units 20:00 02:58 WBC (3.8-10.6) k/uL Hgb (13.0-17.5) gm/dL Hct (39.0-53.0) % Plt Count (150-450) k/uL Lymphocytes # (1.0-4.8) k/uL APTT 132.7 H* 64.5 H (22.0-30.0) sec D-Dimer (<0.60) mg/L FEU Glucose (74-99) mg/dL Total Bilirubin (0.2-1.3) mg/dL Abdominal x-ray: report reviewed CT scan - chest: report reviewed Assessment and Plan (1) CLL (chronic lymphocytic leukemia) Current Visit: Yes Status: Chronic Code(s): C91.10 - CHRONIC LYMPHOCYTIC LEUK OF B-CELL TYPE NOT ACHIEVE REMIS SNOMED Code(s): 85271377 (2) Pulmonary embolism Current Visit: Yes Status: Acute Code(s): I26.99 - OTHER PULMONARY EMBOLISM WITHOUT ACUTE COR PULMONALE SNOMED Code(s): 54920498 Plan: #Pulmonary embolism -Noted to have right-sided chest pain with increased dyspnea -CTA of the chest noted acute pulmonary embolism in the right lower lobe with possible infarction and possible subsegmental PE in the left lower lobe -Duplex of the lower extremities noted DVT in the right popliteal vein -Echocardiogram notes moderately dilated right ventricle with no evidence of acute right heart strain -He was initially treated with heparin drip with plans to transition to therapeutic Eliquis today -Agree with transitioning to Eliquis 10 mg twice daily for 1 week followed by Eliquis 5 mg twice daily -At this appears to be an unprovoked pulmonary embolism along with potentially increased risk of VTE in CLL, I do recommend indefinite anticoagulation -His platelets are currently above 50,000 and have been consistently and are in safe range for therapeutic anticoagulation -Another indication for indefinite anticoagulation would be to prevent chronic thromboembolic pulmonary hypertension as he already has some evidence of pulmonary hypertension on echo. I would defer to our pulmonary colleagues with regards to whether he would benefit from treatment of pulmonary hypertension #CLL -Diagnosed in 1998 and has been on surveillance -He has been receiving IVIG infusions intermittently, most recently on 10/15/2023 with his last IgG being 633 -As his cell counts have been stable, recommend continuing to monitor CLL at this time -Follow-up visit on 03/21/2024 with his primary oncologist Dr. Phil Reed at 9:30 AM Ravi Reed MD
--- NOTE | 2024-03-15 13:51 | P.CRDCN ---
History of Present Illness Consult date: 03/15/24 History of present illness: HISTORY OF PRESENTING ILLNESS 73-year-old with past medical history of CLL on observation, COPD presents the hospital because of right-sided cough, chest pain and increased shortness of breath for last 1 to 2 days. On admission he had mild elevation of D-dimer for which she had a CT chest angiogram done which showed evidence of small right lower subsegmental pulmonary embolism along with small pulmonary infarct in the right lower lobe. Lower extremity Doppler showed right popliteal vein DVT Troponins were not elevated. His ECG showed sinus rhythm with right bundle branch block. When compared to his old ECG also showed right bundle branch block. His echocardiogram showed an EF of 55 to 60% with moderate pulmonary hypertension and mild RV dilatation. He is in normal sinus rhythm with no concerns of arrhythmias or atrial fibril lation during his hospitalization. He does not appear volume overloaded. Patient denies any prior history of blood clots. He denies any prolonged immobilization or any recent travels. He does report mild trauma to his right lower leg leading to some bruising. REVIEW OF SYSTEMS 14 point review of system is negative except what is mentioned above in HPI. PHYSICAL EXAMINATION Vital signs reviewed. Head: Normocephalic. Eyes: Sclerae nonicteric. Neck: Brisk carotid upstroke, no jugular venous distention. Lungs: Clear to auscultation. Heart: Regular rate and rhythm, S1-S2, no S3, no murmur or rub. Abdomen: Soft nontender, positive bowel sounds. Extremities: No edema, intact distal pulses. Neuro: Alert, oritented, no focal deficits. Detailed neuro exam was not performed. ASSESSMENT Acute right subsegmental pulmonary embolism Right popliteal vein DVT History of CLL. On IVIG therapy, last treatment in October 2023 Moderate pulm hypertension with mild RV dilatation Thrombocytopenia, platelets 89 Right bundle branch block PLAN Anticoagulated with Eliquis as per recommendations from hematology and pulmonology. Concerns of acute coronary syndrome at present or any arrhythmias at this time. Echocardiogram was reviewed which showed preserved LV systolic function with mild RV dilatation and moderate pulmonary hypertension. Patient reports that he follows up with Dr. Zhou recently had a stress test outpatient approximately 6 months ago which was nonrevealing. At this time patient is cleared from cardiovascular standpoint. Please reconsult us in case of any questions. Recommend outpatient follow-up with Dr. Zhou for repeat echo in 3 to 4 months to evaluate if patient's pulmonary hypertension resolves. If not he will need further evaluation for pulm hypertension Porter Mann MD, FACC, RPVI Thank you for allowing [facility] to participate in this patient's care. Feel free to reach out in case of any followup questions. Past Medical History Past Medical History: Hypertension, Osteoarthritis (OA), Thyroid Disorder Additional Past Medical History / Comment(s): chronic cough-at times productive clear mucus-steroids December 2023,CHRONIC LYMPHOCYSTIC LEUKEMIA (IN REMISSION, DR. COBURN) History of Any Multi-Drug Resistant Organisms: None Reported Past Surgical History: Joint Replacement Additional Past Surgical History / Comment(s): BILATERAL HIP REPLACED. CATARACTS, COLONOSCOPYS. Past Anesthesia/Blood Transfusion Reactions: No Reported Reaction Past Psychological History: No Psychological Hx Reported Additional Psychological History / Comment(s): HAS HAD A BRAIN INJURY, DOES NOT DRIVE Smoking Status: Never smoker Past Alcohol Use History: None Reported Past Drug Use History: None Reported - Past Family History Father Family Medical History: Cancer Additional Family Medical History / Comment(s): COLON CANCER Medications and Allergies Home Medications Medication Instructions Recorded Confirmed Type Levothyroxine Sodium 88 mcg PO DAILY 07/22/20 03/14/24 History Celecoxib [CeleBREX] 200 mg PO DAILY 02/01/22 03/14/24 History Losartan [Cozaar] 50 mg PO HS 02/05/24 03/14/24 History Budesonide/Formoterol Fumarate 2 puff INHALATION RT-BID 03/14/24 03/14/24 History [Symbicort 160-4.5 Mcg Inhaler] Ipratropium-Albuterol Nebulize 3 ml INHALATION RT-QID PRN 03/14/24 03/14/24 History [Duoneb 0.5 mg-3 mg/3 ml Soln] predniSONE 5 mg PO DAILY 03/14/24 03/14/24 History Allergies Allergy/AdvReac Type Severity Reaction Status Date / Time No Known Allergies Allergy Verified 03/14/24 12:45 Physical Exam Vitals: Vital Signs Temp Pulse Pulse Resp BP BP Pulse Ox 03/15/24 12:48 84 17 123/74 96 03/15/24 09:47 95 03/15/24 08:36 98.6 F 85 16 155/77 95 03/15/24 04:00 82 16 133/74 95 03/15/24 00:00 72 16 127/61 98 03/14/24 20:35 98.1 F 76 16 125/60 95 03/14/24 19:53 87 18 127/55 96 03/14/24 18:00 80 18 129/79 98 Intake and Output 03/14/24 03/15/24 03/15/24 22:59 06:59 14:59 Intake Total 108.86 625.277 191.875 Balance 108.86 625.277 191.875 Intake: Intake, IV Titration 108.86 85.277 81.875 Amount Heparin Sod,Pork in 0.45% 108.86 85.277 81.875 NaCl 25,000 unit In 0.45 % NaCl 1 250ml.bag @ 18 UNITS/KG/HR 16.329 mls/hr IV .[id number] [facility] Rx#: [id number] Oral 540 110 Other: Voiding Method Toilet Toilet Toilet # Voids 1 Weight 90.718 kg 92.3 kg Results 03/15/24 10:28 03/15/24 10:28 Coagulation 03/14/24 03/15/24 Range/Units 20:00 02:58 APTT 132.7 H* 64.5 H (22.0-30.0) sec CBC 03/15/24 Range/Units 10:28 WBC 18.9 H (3.8-10.6) k/uL RBC 4.18 L (4.30-5.90) m/uL Hgb 12.1 L (13.0-17.5) gm/dL Hct 38.3 L (39.0-53.0) % Plt Count 89 L (150-450) k/uL Comprehensive Metabolic Panel 03/15/24 Range/Units 10:28 Sodium 139 (137-145) mmol/L Potassium 4.4 (3.5-5.1) mmol/L Chloride 108 H (98-107) mmol/L Carbon Dioxide 25 (22-30) mmol/L BUN 18 (9-20) mg/dL Creatinine 1.04 (0.66-1.25) mg/dL Glucose 126 H (74-99) mg/dL Calcium 8.9 (8.4-10.2) mg/dL Current Medications Generic Name Dose Route Start Last Admin Trade Name Freq PRN Reason Stop Dose Admin Acetaminophen 650 mg 03/15/24 09:11 Acetaminophen Tab 325 Mg Tab PO Q6HR PRN Mild Pain or Fever > 100.5 Hydrocodone Bitart/Acetaminophen 1 each 03/15/24 09:11 Hydrocodone/Apap 5-325mg 1 Each Tab PO Q4HR PRN Moderate Pain (Scale 4 to 6) Albuterol/Ipratropium 3 ml 03/14/24 14:22 Ipratropium-Albuterol 3 Ml Neb INHALATION RT-QID PRN Shortness Of Breath Apixaban 10 mg 03/15/24 10:00 03/15/24 09:57 Apixaban Initiation Dose--Vte 5 Mg Tab PO 04/14/24 09:59 10 mg BID JER[facility] Administration Taper Budesonide/Formoterol Fumarate 2 puff 03/14/24 20:00 03/15/24 09:47 Symbicort 160-4.5 Mcg Inhaler INHALATION 2 puff RT-BID [facility] Administration Levothyroxine Sodium 88 mcg 03/15/24 09:00 03/15/24 08:37 Levothyroxine 88 Mcg Tab PO 88 mcg DAILY JEREMY Administration Losartan Potassium 50 mg 03/14/24 21:00 03/14/24 20:47 Losartan 50 Mg Tab PO 50 mg HS [facility] Administration Morphine Sulfate 4 mg 03/15/24 09:11 03/15/24 09:57 Morphine Sulfate 4 Mg/Ml Syringe IV 4 mg Q4HR PRN Administration Severe Pain (Scale 7 to 10) Intake and Output 03/14/24 03/15/24 03/15/24 22:59 06:59 14:59 Intake Total 108.86 625.277 191.875 Balance 108.86 625.277 191.875 Intake: Intake, IV Titration 108.86 85.277 81.875 Amount Heparin Sod,Pork in 0.45% 108.86 85.277 81.875 NaCl 25,000 unit In 0.45 % NaCl 1 250ml.bag @ 18 UNITS/KG/HR 16.329 mls/hr IV .[id number] [facility] Rx#: [id number] Oral 540 110 Other: Voiding Method Toilet Toilet Toilet # Voids 1 Weight 90.718 kg 92.3 kg 03/15/24 10:28 03/15/24 10:28
[2024-03-15] MEDS: ACETAMINOPHEN TAB 325 MG TAB PO PRN (16:36)
--- NOTE | 2024-03-15 16:41 | P.PN ---
Subjective Progress Note Date: 03/15/24 Hospital Course: Patient is a very pleasant 73-year-old male with a past medical history of CLL follows Dr. Reed (diagnosed in 1998), hypertension, hypothyroidism, and asthma/COPD not home oxygen dependent. He presented to the emergency department with shortness of breath and right-sided chest pain. Patient reports development of worsening shortness of breath and right-sided chest pain yesterday. Patient reports pain would not let up and has been persistent and sharp accompanied by worsening shortness of breath over the past 24 hours. He denies having any fevers, chills, headache, lightheadedness, dizziness, palpitations, abdominal pain, nausea, vomiting, or noticing any weakness/swelling/numbness/tingling in his extremities. Patient reports he does not receive any treatment for his CLL and is just being monitored closely, he reports he only recently began having problems with his labs and that is because he has had a chronic worsening cough x 2 months and has been put on steroids by security program manager Dr. Fierro. Upon arrival to our facility, patient underwent evaluation in the emergency department. Vital signs upon arrival show blood pressure 168/71, heart rate 87, respiratory rate 18, temp 98.6 F, and SpO2 of 95% on room air. EKG was completed showing normal sinus rhythm at 83 bpm with T wave inversion in inferior leads III and aVF as well as leads V1 through V4 (which is unchanged when compared to previous EKG completed 08/31/2022 on personal review and interpretation). Chest x-ray completed showing bibasilar atelectasis/infiltrate with right greater than left. Labs were completed and reviewed. CBC showing leukocytosis with WBC count of 16.4 and bicytopenia with hemoglobin of 12.8 and platelet count of 77. BMP unremarkable. Blood glucose 110. Liver profile showing hyperbilirubinemia with bilirubin of 4.2 (this has been elevated in the past documented as high as 3.0, most recent bilirubin documented was 1.0 on 08/28/2023). Troponin was negative at less than 0.012. Coagulation profile showing elevated D-dimer of 0.89. Influenza A, influenza B, COVID, and RSV were negative. CTA chest showing acute right lower lobe pulmonary emboli and possible small left subsegmental lower lobe pulmonary emboli with concerns of pulmonary infarct in the right lower lobe and previously known splenomegaly. Patient was started on high intensity heparin infusion and admitted under our services to stepdown unit with consultation to pulmonology, hematology/oncology, and cardiology. Physical exam: Patient seen and fully evaluated at bedside this morning. He continues to report significant pain to right rib region. Currently reports shortness of breath is controlled and denies any other complaints at this time. Vital signs reviewed and stable. General: Nontoxic, no distress and appears stated age. Derm: Skin warm and dry, normal coloration for ethnicity. Head: Atraumatic, normocephalic and symmetric. Eyes: EOMs intact, no lid lag, and anicteric sclera Mouth: no lip lesions, mucus membranes moist Cardiovascular: regular rate and rhythm with normal S1S2, systolic murmur, positive posterior tibial pulses bilaterally, and cap refill < 2 seconds. Lungs: Respirations even, regular, and unlabored on room air. Lungs CTA bilaterally, no rhonchi, no rales, no wheezing, and no accessory muscle usage. Abdominal: soft, nontender to palpation, no guarding, no appreciable organomegaly Ext: ROM intact. No gross muscle atrophy, no edema, no contractures Neuro: Speech clear, face symmetrical and CN II-XII grossly intact with no noted focal neuro deficits Psych: Alert and oriented to person, place, time, and situation. Appropriate and pleasant affect. Assessment and Plan of Care: Acute pulmonary emboli with right-sided pulmonary infarct Pulmonary hypertension with dilated right ventricle Right Lower Extremity DVT popliteal vein History of CLL Leukocytosis and Bicytopenia with anemia and thrombocytopenia, chronic secondary to CLL -Pulmonology consulted, reviewed documentation in chart -Hematology/oncology consulted, appreciate recommendations -Cardiology consulted, appreciate recommendations -Patient to remain on continuous telemetry monitoring -Continue high intensity heparin infusion 16 units/kg/h with close monitoring of PTT for goal therapeutic range of 44 to 79 seconds. -Bilateral lower extremity Dopplers completed positive for right lower extremity DVT of popliteal vein -Echocardiogram revealing a preserved EF of 55 to 60% with dilated right ventricle and mild to moderate pulmonary hypertension, mild mitral regurgitation with mild prolapse of the posterior mitral valve and mild tricuspid regurgit ation. Hyperbilirubinemia Right upper quadrant and right-sided chest pain, likely secondary to acute PE however patient also has hyperbilirubinemia of unclear cause -Liver ultrasound showing biliary sludge otherwise negative for acute process. Hypertension Continue daily medication regimen with losartan 50 mg nightly. Hypothyroidism Continue daily medication regimen with levothyroxine 88 mcg daily. History of COPD/asthma Not home oxygen dependent and not in acute exacerbation. Continue Symbicort 160-4.5 mcg inhaler 2 puffs twice daily and placed on DuoNebs as needed for shortness of breath and/or wheezing. Data and Imaging reviewed: CBC showing leukocytosis with WBC count of 18.9 and hemoglobin of 12.1 with platelet count of 89. BMP showing hyperchloremia with chloride of 108 and glucose of 126. PTT therapeutic at 64.5. -Echocardiogram revealing a preserved EF of 55 to 60% with dilated right ventricle and mild to moderate pulmonary hypertension, mild mitral regurgitation with mild prolapse of the posterior mitral valve and mild tricuspid regurgitation. -Liver ultrasound showing biliary sludge otherwise negative for acute process. -Vital signs reviewed. Blood pressure 155/77, heart rate 85, respiratory rate 16, temp 98.6 F, and SpO2 of 95% on room air. CODE STATUS: Full code DVT prophylaxis: Heparin Anticipated discharge date: Pending clinical course Anticipated discharge place: Home Patient was seen independently by Nurse Practitioner. This document was prepared using [employer] dictation software. Please allow for errors in bath steward/stewardess while rare they do occur. . I reviewed the documentation as provided by the LALO above, who is the original author of this note. I agree with the documented assessment and plan, with the following changes: none Objective - Vital Signs Vital signs: Vital Signs Temp 98.6 F 03/15/24 08:36 Pulse 85 03/15/24 08:36 Resp 16 03/15/24 08:36 BP 155/77 03/15/24 08:36 Pulse Ox 95 03/15/24 08:36 FiO2 Intake & Output 03/14/24 03/15/24 03/15/24 18:59 06:59 18:59 Intake Total 734.137 Balance 734.137 Weight 90.718 kg 92.3 kg Intake: Intake, IV Titration 194.137 Amount Heparin Sod,Pork in 0.45% 194.137 NaCl 25,000 unit In 0.45 % NaCl 1 250ml.bag @ 18 UNITS/KG/HR 16.329 mls/hr IV .[id number] [facility] Rx#: [id number] Oral 540 Other: Voiding Method Toilet # Voids 1 - Labs CBC & Chem 7: 03/16/24 07:02 03/16/24 07:02 Labs: Abnormal Lab Results - Last 24 Hours (Table) 03/14/24 03/14/24 03/14/24 Range/Units 10:14 10:14 10:14 WBC 16.4 H (3.8-10.6) k/uL Hgb 12.8 L (13.0-17.5) gm/dL Hct 38.5 L (39.0-53.0) % Plt Count 77 L (150-450) k/uL Lymphocytes # 10.4 H (1.0-4.8) k/uL APTT (22.0-30.0) sec D-Dimer 0.89 H (<0.60) mg/L FEU Glucose 110 H (74-99) mg/dL Total Bilirubin 4.2 H (0.2-1.3) mg/dL 03/14/24 03/15/24 Range/Units 20:00 02:58 WBC (3.8-10.6) k/uL Hgb (13.0-17.5) gm/dL Hct (39.0-53.0) % Plt Count (150-450) k/uL Lymphocytes # (1.0-4.8) k/uL APTT 132.7 H* 64.5 H (22.0-30.0) sec D-Dimer (<0.60) mg/L FEU Glucose (74-99) mg/dL Total Bilirubin (0.2-1.3) mg/dL
[2024-03-16] MEDS: IPRATROPIUM-ALBUTEROL 3 ML NEB INHALATION SCH (07:50)
[2024-03-16 07:59] LABS: HCT 37.6 % (39.0-53.0); HGB 11.9 gm/dL (13.0-17.5); MCHC 31.5 g/dL (31.0-37.0); MCV 91.8 fL (80.0-100.0); Mean Platelet Volume 7.8; RDW 14.3 % (11.5-15.5); WBC 13.2 k/uL (3.8-10.6)
[2024-03-16 08:17] LABS: ALT 11 U/L (4-49); AST 18 U/L (17-59); African American GFR (CKD) 77 (>60 ml/min/1.73 sqM); Albumin 3.5 g/dL (3.5-5.0); Alkaline Phosphatase 60 U/L (38-126); Anion Gap 8 mmol/L; Blood Urea Nitrogen 17 mg/dL (9-20); Calcium 8.6 mg/dL (8.4-10.2); Carbon Dioxide 23 mmol/L (22-30); Chloride 107 mmol/L (98-107); Glucose 110 mg/dL (74-99); Non-African American GFR(CKD) 67 (>60 ml/min/1.73 sqM); Potassium 3.8 mmol/L (3.5-5.1); Sodium 138 mmol/L (137-145); Total Bilirubin 2.7 mg/dL (0.2-1.3); Total Protein 5.6 g/dL (6.3-8.2)
--- NOTE | 2024-03-16 09:42 | P.PN ---
Subjective Progress Note Date: 03/16/24 Hospital Course: Patient is a very pleasant 73-year-old male with a past medical history of CLL follows Dr. Reed (diagnosed in 1998), hypertension, hypothyroidism, and asthma/COPD not home oxygen dependent. He presented to the emergency department with shortness of breath and right-sided chest pain. Patient reports development of worsening shortness of breath and right-sided chest pain yesterday. Patient reports pain would not let up and has been persistent and sharp accompanied by worsening shortness of breath over the past 24 hours. He denies having any fevers, chills, headache, lightheadedness, dizziness, palpitations, abdominal pain, nausea, vomiting, or noticing any weakness/swelling/numbness/tingling in his extremities. Patient reports he does not receive any treatment for his CLL and is just being monitored closely, he reports he only recently began having problems with his labs and that is because he has had a chronic worsening cough x 2 months and has been put on steroids by hand worker Dr. Fierro. Upon arrival to our facility, patient underwent evaluation in the emergency department. Vital signs upon arrival show blood pressure 168/71, heart rate 87, respiratory rate 18, temp 98.6 F, and SpO2 of 95% on room air. EKG was completed showing normal sinus rhythm at 83 bpm with T wave inversion in inferior leads III and aVF as well as leads V1 through V4 (which is unchanged when compared to previous EKG completed 08/31/2022 on personal review and interpretation). Chest x-ray completed showing bibasilar atelectasis/infiltrate with right greater than left. Labs were completed and reviewed. CBC showing leukocytosis with WBC count of 16.4 and bicytopenia with hemoglobin of 12.8 and platelet count of 77. BMP unremarkable. Blood glucose 110. Liver profile showing hyperbilirubinemia with bilirubin of 4.2 (this has been elevated in the past documented as high as 3.0, most recent bilirubin documented was 1.0 on 08/28/2023). Troponin was negative at less than 0.012. Coagulation profile showing elevated D-dimer of 0.89. Influenza A, influenza B, COVID, and RSV were negative. CTA chest showing acute right lower lobe pulmonary emboli and possible small left subsegmental lower lobe pulmonary emboli with concerns of pulmonary infarct in the right lower lobe and previously known splenomegaly. Patient was started on high intensity heparin infusion and admitted under our services to stepdown unit with consultation to pulmonology, hematology/oncology, and cardiology. Bilateral lower extremity Dopplers comple wesley positive for right lower extremity DVT of popliteal vein. Echocardiogram revealing a preserved EF of 55 to 60% with dilated right ventricle and mild to moderate pulmonary hypertension, mild mitral regurgitation with mild prolapse of the posterior mitral valve and mild tricuspid regurgitation. Physical exam: Patient seen and fully evaluated at bedside this morning. He continues to report pain to right rib region and coarse cough, but does acknowledge some improvement. Currently reports shortness of breath is controlled at rest and is maintaining SpO2 greater than or equal to 95% on room air. Discussed possibility of discharge with patient and hand worker at bedside, per hand worker recommendations, patient to stay an additional 24 hours and to be encouraged to increase ambulation and monitor for any signs/symptoms of desaturation with activity. Vital signs reviewed and stable. General: Nontoxic, no distress and appears stated age. Derm: Skin warm and dry, normal coloration for ethnicity. Head: Atraumatic, normocephalic and symmetric. Eyes: EOMs intact, no lid lag, and anicteric sclera Mouth: no lip lesions, mucus membranes moist Cardiovascular: regular rate and rhythm with normal S1S2, systolic murmur, positive posterior tibial pulses bilaterally, and cap refill < 2 seconds. Lungs: Respirations even, regular, and unlabored on room air. Lungs CTA bilaterally, no rhonchi, no rales, no wheezing, and no accessory muscle usage. Abdominal: soft, nontender to palpation, no guarding, no appreciable organomegaly Ext: ROM intact. No gross muscle atrophy, no edema, no contractures Neuro: Speech clear, face symmetrical and CN II-XII grossly intact with no noted focal neuro deficits Psych: Alert and oriented to person, place, time, and situation. Appropriate and pleasant affect. Assessment and Plan of Care: Acute pulmonary emboli with right-sided pulmonary infarct Pulmonary hypertension with dilated right ventricle Right Lower Extremity DVT popliteal vein History of CLL Leukocytosis and Bicytopenia with anemia and thrombocytopenia, chronic secondary to CLL -Pulmonology consulted, this plan of care in depth with hand worker. He is recommending for patient to increase activity and close monitoring for an additional 24 hours for any signs/symptoms of oxygen desaturation with ambulation. -Hematology/oncology following, reviewed documentation in chart. Recommending patient continue follow-up with intermittent IVIG infusions with next scheduled appointment being 03/21/2024. -Cardiology consulted, appreciate recommendations -Patient to remain on continuous telemetry monitoring -Continue anticoagulation with Eliquis 10 mg twice daily x 7 days then 5 mg twice daily. -Bilateral lower extremity Dopplers completed positive for right lower extremity DVT of popliteal vein -Echocardiogram revealing a preserved EF of 55 to 60% with dilated right ventricle and mild to moderate pulmonary hypertension, mild mitral regurgitation with mild prolapse of the posterior mitral valve and mild tricuspid regurgitation. Hyperbilirubinemia, improving Right upper quadrant and right-sided chest pain, likely secondary to acute PE -Liver ultrasound showing biliary sludge otherwise negative for acute process. Hypertension Continue daily medication regimen with losartan 50 mg nightly. Hypothyroidism Continue daily medication regimen with levothyroxine 88 mcg daily. History of COPD/asthma Not home oxygen dependent and not in acute exacerbation. Continue Symbicort 160-4.5 mcg inhaler 2 puffs twice daily and placed on DuoNebs as needed for shortness of breath and/or wheezing. Data and Imaging reviewed: Morning labs completed and reviewed. CBC showing improvement of leukocytosis with WBC count decreasing from 18.9 down to 13.2 this morning, stable normocytic anemia with hemoglobin of 11.9 and stable thrombocytopenia with platelet count of 92. BMP unremarkable. Liver profile showing elevated total bili of 2.7 which has improved from previous 4.2 and appears more at baseline with comparison of previous labs. Vital signs reviewed. Blood pressure 134/70, heart rate 80, respiratory rate 16, temp 98.7 F, and SpO2 of 95% on room air. CODE STATUS: Full code DVT prophylaxis: Eliquis Anticipated discharge date: Tomorrow morning Anticipated discharge place: Home Patient was seen independently by Nurse Practitioner. This document was prepared using [email or web address] dictation software. Please allow for errors in web production assistant while rare they do occur. . I reviewed the documentation as provided by the LALO above, who is the original author of this note. I agree with the documented assessment and plan, with the following changes: none Objective - Vital Signs Vital signs: Vital Signs Temp 97.8 F 03/15/24 19:35 Pulse 77 03/16/24 04:00 Resp 15 03/16/24 04:00 BP 120/65 03/16/24 04:00 Pulse Ox 97 03/16/24 07:50 FiO2 Intake & Output 03/15/24 03/16/24 03/16/24 18:59 06:59 18:59 Intake Total 1231.875 Balance 1231.875 Intake: Intake, IV Titration 81.875 Amount Heparin Sod,Pork in 0.45% 81.875 NaCl 25,000 unit In 0.45 % NaCl 1 250ml.bag @ 18 UNITS/KG/HR 16.329 mls/hr IV .[id number] [facility] Rx#: [id number] Oral 1150 Other: Voiding Method Toilet Toilet # Voids 3 2 # Bowel Movements 0 - Labs CBC & Chem 7: 03/16/24 07:02 03/16/24 07:02 Labs: Abnormal Lab Results - Last 24 Hours (Table) 03/15/24 03/15/24 Range/Units 10:28 10:28 WBC 18.9 H (3.8-10.6) k/uL RBC 4.18 L (4.30-5.90) m/uL Hgb 12.1 L (13.0-17.5) gm/dL Hct 38.3 L (39.0-53.0) % Plt Count 89 L (150-450) k/uL Chloride 108 H (98-107) mmol/L Glucose 126 H (74-99) mg/dL Microbiology - Last 24 Hours (Table) 03/14/24 10:29 Blood Culture - Preliminary Blood 03/14/24 10:14 Blood Culture - Preliminary Blood
[2024-03-16 09:49] LABS: Platelet Count 92 k/uL (150-450)
--- NOTE | 2024-03-16 12:12 | P.PN ---
Subjective Progress Note Date: 03/16/24 This is a 73-year-old male patient, known history of COPD and chronic lymphocytic leukemia, not receiving any treatment as the patient's hematologic profile has been stable with some mild thrombocytopenia. The patient came into the hospital because of pleuritic right-sided chest pain. No fever. No chills. No night sweats. Hemodynamically stable and the patient's pulse ox was 95% on room air oxygen. Cardiac rhythm was sinus. Nonspecific EKG changes were noted. Chest x-ray showed some atelectatic changes in the right lung base. Based on that, the patient underwent a CT angiogram that showed a right lower lobe pulmonary embolism and possibly some subtle segmental emboli in the left lower lobe and atelectatic changes in the right lung base. He does have underlying splenomegaly related to CLL. The patient was started on IV heparin. Furthermore, Doppler of the lower extremities were done and the patient was found to have a right popliteal DVT. Currently on IV heparin. No new compl aints. Pleurisy has been improving since yesterday. Hemodynamically stable. No other new complaints for now. Follow-up platelet count from today is still pending. He was stable at 12.1. Electrolytes are all stable. The viral screen has been negative. No previous history of DVT or pulmonary embolism. No immobility. No travels. No other complaints otherwise for now. 03/16/2024, the patient is being seen for a follow-up. The patient's pleurisy has improved. He is complaining of some limited cough and congestion. He was started on bronchodilators. He is currently on Eliquis. His platelet count today is stable at 92. Hemoglobin stable at 11.9. No swelling lower extremities. BUN 17 with a creatinine of 1.08. Sodium level is at 138. Echocardiogram showed a preserved LV function. No significant RV failure or pulm hypertension. Estimated PA pressures based on the RV pressure is 45. He is currently on room air oxygen. No other significant events overnight. Objective - Vital Signs Vital signs: Vital Signs Temp 98.7 F 03/16/24 08:11 Pulse 80 03/16/24 08:11 Resp 16 03/16/24 08:11 BP 134/70 03/16/24 08:11 Pulse Ox 95 03/16/24 08:11 FiO2 Intake & Output 0703/16/24 03/16/24 18:59 06:59 18:59 Intake Total 1231.875 Balance 1231.875 Intake: Intake, IV Titration 81.875 Amount Heparin Sod,Pork in 0.45% 81.875 NaCl 25,000 unit In 0.45 % NaCl 1 250ml.bag @ 18 UNITS/KG/HR 16.329 mls/hr IV .[id number] [facility] Rx#: [id number] Oral 1150 Other: Voiding Method Toilet Toilet # Voids 3 2 # Bowel Movements 0 - Exam The patient appeared well nourished and normally developed. Vital signs as documented. Head exam is unremarkable. No scleral icterus or corneal arcus noted. Neck is without jugular venous distension, thyromegaly, or carotid br uits. Carotid upstrokes are brisk bilaterally. Lungs are clear to auscultation and percussion. Cardiac exam reveals the PMI to be normally sized and situated. Rhythm is regular. First and second heart sounds normal. No murmurs, rubs or gallops. Abdominal exam reveals normal bowel sounds, no masses, no organomegaly and no aortic enlargement. Extremities are nonedematous and both femoral and pedal pulses are normal. Examination of the skin revealed no evidence of significant rashes, suspicious appearing nevi or other concerning lesions. Neurologically, the patient is awake and alert and the patient does not have any focal neurological deficit. Cranial nerves are essentially intact. - Labs CBC & Chem 7: 03/16/24 07:02 03/16/24 07:02 Labs: Abnormal Lab Results - Last 24 Hours (Table) 03/15/24 03/15/24 03/16/24 Range/Units 10:28 10:28 07:02 WBC 18.9 H 13.2 H (3.8-10.6) k/uL RBC 4.18 L 4.10 L (4.30-5.90) m/uL Hgb 12.1 L 11.9 L (13.0-17.5) gm/dL Hct 38.3 L 37.6 L (39.0-53.0) % Plt Count 89 L (150-450) k/uL Chloride 108 H (98-107) mmol/L Glucose 126 H (74-99) mg/dL Total Bilirubin (0.2-1.3) mg/dL Total Protein (6.3-8.2) g/dL 03/16/24 Range/Units 07:02 WBC (3.8-10.6) k/uL RBC (4.30-5.90) m/uL Hgb (13.0-17.5) gm/dL Hct (39.0-53.0) % Plt Count (150-450) k/uL Chloride (98-107) mmol/L Glucose 110 H (74-99) mg/dL Total Bilirubin 2.7 H (0.2-1.3) mg/dL Total Protein 5.6 L (6.3-8.2) g/dL Microbiology - Last 24 Hours (Table) 03/14/24 10:29 Blood Culture - Preliminary Blood 03/14/24 10:14 Blood Culture - Preliminary Blood Assessment and Plan Plan: Acute pulm embolism with a right lower extremity popliteal DVT, Unprovoked, currently on room air oxygen Acute pleuritic right-sided chest pain, improving secondary to pulmonary, improving Right basilar atelectatic changes, related to pulmonary embolism COPD, currently inactive and stable CLL Chronic thrombocytopenia secondary to CLL Chronic 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 The patient will need anticoagulation for now for at least 6 months to be followed up by hematology oncology. Will continue to follow make further condition based on his progress. Based on echocardiogram but also needed to assess for pulm hypertension and RV strain. Continue Symbicort maintenance
[2024-03-17 08:14] VITALS: BP 107/67; RESP 18; TEMP 98.3
[2024-03-17 08:32] LABS: HCT 34.9 % (39.0-53.0); HGB 11.2 gm/dL (13.0-17.5); MCH 29.4 pg (25.0-35.0); MCV 91.9 fL (80.0-100.0); Mean Platelet Volume 7.8; Platelet Count 101 k/uL (150-450); RDW 14.1 % (11.5-15.5); WBC 11.9 k/uL (3.8-10.6)
[2024-03-17 08:51] LABS: ALT 11 U/L (4-49); AST 18 U/L (17-59); African American GFR (CKD) 73 (>60 ml/min/1.73 sqM); Albumin 3.3 g/dL (3.5-5.0); Alkaline Phosphatase 59 U/L (38-126); Anion Gap 3 mmol/L; Blood Urea Nitrogen 18 mg/dL (9-20); Calcium 8.4 mg/dL (8.4-10.2); Carbon Dioxide 27 mmol/L (22-30); Chloride 107 mmol/L (98-107); Glucose 114 mg/dL (74-99); Magnesium 2.2 mg/dL (1.6-2.3); Non-African American GFR(CKD) 64 (>60 ml/min/1.73 sqM); Potassium 4.4 mmol/L (3.5-5.1); Sodium 137 mmol/L (137-145); Total Bilirubin 1.6 mg/dL (0.2-1.3); Total Protein 5.3 g/dL (6.3-8.2)
--- NOTE | 2024-03-17 09:28 | P.DS ---
Providers Date of admission: 03/14/24 14:01 Expected date of discharge: 03/17/24 Attending physician: Vineet Skinner MD Consults: 03/14/24 14:00 Consult Physician Urgent Consulting Provider: Clara Apodaca Consult Reason/Comments: Pulmonary embolism Do you want consulting provider notified?: Yes 03/14/24 15:38 Consult Physician Routine Consulting Provider: Ravi Reed Consult Reason/Comments: CLL admitted for PE Do you want consulting provider notified?: Yes Primary care physician: Rosalino Banda [facility] Course: Discharge Diagnosis: Acute pulmonary emboli with right-sided pulmonary infarct. Patient had resolution of shortness of breath and significant improvement of right-sided rib/chest/flank pain. He is maintaining SpO2 greater than 92% on room air at rest and with exertion. He will need to follow-up as scheduled with Dr. Ogden in 2 weeks in office. Patient will require continued anticoagulation with Eliquis. Prescription was sent and verified insurance coverage. Patient to also follow-up with for continued anticoagulation recommendations. Pt has appointment scheduled in his office on 03/21/24. Pulmonary hypertension with dilated right ventricle. Cardiology evaluated recommended patient follow-up in their office in 2 weeks and recommending repeat echo in 3 to 4 months to evaluate for resolution of pulmonary hypertension. Right Lower Extremity DVT popliteal vein. Patient will require continued anticoagulation with Eliquis. Prescription was sent and verified insurance coverage. History of CLL. Patient to continue to follow-up outpatient with oncologist, . Leukocytosis and Bicytopenia with anemia and thrombocytopenia, chronic secondary to CLL. Leukocytosis improved from initial 18.9 down to 11.9 this morning and bicytopenia stable with hemoglobin of 11.2 and platelet count of 101 on discharge. Hyperbilirubinemia, improved. Liver ultrasound showing biliary sludge otherwise negative for acute process. Right upper quadrant and right-sided chest pain, secondary to acute PE with pulmonary infarct Hypertension. Continue daily medication regimen with losartan 50 mg nightly. Hypothyroidism. Continue daily medication regimen with levothyroxine 88 mcg daily. History of COPD/asthma. Not home oxygen dependent and not in acute exacerbation. Continue Symbicort 160-4.5 mcg inhaler 2 puffs twice daily and DuoNebs as needed for shortness of breath and/or wheezing. Hospital Course: Patient is a very pleasant 73-year-old male with a past medical history of CLL follows Dr. Reed (diagnosed in 1998), hypertension, hypothyroidism, and asthma/COPD not home oxygen dependent. He presented to the emergency department with shortness of breath and right-sided chest pain. Upon arrival to our facility, patient underwent evaluation in the emergency department. Vital signs upon arrival show blood pressure 168/71, heart rate 87, respiratory rate 18, temp 98.6 F, and SpO2 of 95% on room air. EKG was completed showing normal sinus rhythm at 83 bpm with T wave inversion in inferior leads III and aVF as well as leads V1 through V4 (which is unchanged when compared to previous EKG completed 08/31/2022 on personal review and interpretation). Chest x-ray completed showing bibasilar atelectasis/infiltrate with right greater than left. Labs were completed and reviewed. CBC showing leukocytosis with WBC count of 16.4 and bicytopenia with hemoglobin of 12.8 and platelet count of 77. BMP unremarkable. Blood glucose 110. Liver profile showing hyperbilirubinemia with bilirubin of 4.2 (this has been elevated in the past documented as high as 3.0, most recent bilirubin documented was 1.0 on 08/28/2023). Troponin was negative at less than 0.012. Coagulation profile showing elevated D-dimer of 0.89. Influenza A, influenza B, COVID, and RSV were negative. CTA chest showing acute right lower lobe pulmonary emboli and possible small left subsegmental lower lobe pulmonary emboli with concerns of pulmonary infarct in the right lower lobe and previously known splenomegaly. Patient was started on high intensity hepa rin infusion and admitted under our services to stepdown unit with consultation to pulmonology, hematology/oncology, and cardiology. Bilateral lower extremity Dopplers completed positive for right lower extremity DVT of popliteal vein. Echocardiogram revealing a preserved EF of 55 to 60% with dilated right ventricle and mild to moderate pulmonary hypertension, mild mitral regurgitation with mild prolapse of the posterior mitral valve and mild tricuspid regurgitation. Patient was weaned from heparin infusion and started on Eliquis for anticoagulation. He increased ambulation and is maintaining SpO2 greater than 92% on room air at rest and with exertion/ambulation. Patient had significant improvement in right chest/right flank pain. He was cleared from cardiology perspective and pulmonology perspective and is stable for discharge at this time. Prescriptions were sent to pharmacy and verified insurance coverage of anticoagulant. Patient to follow-up with PCP in 1 to 2 days, overlock hemmer/oncologist as scheduled on 03/21/2024, pediatric allergist as scheduled on 04/01/2024, and production supv in 1 week. Physical exam: Vital signs reviewed and stable. General: Nontoxic, no distress and appears stated age. Derm: Skin warm and dry, normal coloration for ethnicity. Head: Atraumatic, normocephalic and symmetric. Eyes: EOMs intact, no lid lag, and anicteric sclera Mouth: no lip lesions, mucus membranes moist Cardiovascular: regular rate and rhythm with normal S1S2, systolic murmur, positive posterior tibial pulses bilaterally, and cap refill < 2 seconds. Lungs: Respirations even, regular, and unlabored on room air. Lungs CTA bilaterally, no rhonchi, no rales, no wheezing, and no accessory muscle usage. Abdominal: soft, nontender to palpation, no guarding, no appreciable organomegaly Ext: ROM intact. No gross muscle atrophy, no edema, no contractures Neuro: Speech clear, face symmetrical and CN II-XII grossly intact with no noted focal neuro deficits Psych: Alert and oriented to person, place, time, and situation. Appropriate and pleasant affect. A total of 37 minutes of time were spent preparing this complex discharge sum Pt was discharged on 03/17/2024 at 9:26 AM. Patient was seen independently by Nurse Practitioner. This document was prepared using [employer] dictation software. Please allow for errors in eye surgeon while rare they do occur. . I reviewed the documentation as provided by the LALO above, who is the original author of this note. I agree with the documented assessment and plan, with the following changes: none Patient Condition at Discharge: Stable Plan - Discharge Summary Discharge Rx Participant: No New Discharge Prescriptions: New HYDROcodone/APAP 5-325MG [[place] 5-325] 1 each PO Q4HR PRN #18 tab PRN Reason: Moderate Pain (Scale 4 To 6) Apixaban [Eliquis Starter Pack (for VTE)] 5 - 10 mg PO DIRECTED 30 Days #1 each Continue Levothyroxine Sodium 88 mcg PO DAILY Ipratropium-Albuterol Nebulize [Duoneb 0.5 mg-3 mg/3 ml Soln] 3 ml INHALATION RT-QID PRN PRN Reason: Shortness Of Breath Celecoxib [CeleBREX] 200 mg PO DAILY Losartan [Cozaar] 50 mg PO HS predniSONE 5 mg PO DAILY Budesonide/Formoterol Fumarate [Symbicort 160-4.5 Mcg Inhaler] 2 puff INHALATION RT-BID Discharge Medication List Levothyroxine Sodium 88 mcg PO DAILY 07/22/20 [History] Celecoxib [CeleBREX] 200 mg PO DAILY 02/01/22 [History] Losartan [Cozaar] 50 mg PO HS 02/05/24 [History] Budesonide/Formoterol Fumarate [Symbicort 160-4.5 Mcg Inhaler] 2 puff INHALATION RT-BID 03/14/24 [History] Ipratropium-Albuterol Nebulize [Duoneb 0.5 mg-3 mg/3 ml Soln] 3 ml INHALATION RT-QID PRN 03/14/24 [History] predniSONE 5 mg PO DAILY 03/14/24 [History] Apixaban [Eliquis Starter Pack (for VTE)] 5 - 10 mg PO DIRECTED 30 Days #1 each 03/17/24 [Rx] HYDROcodone/APAP 5-325MG [[place] 5-325] 1 each PO Q4HR PRN #18 tab 03/17/24 [Rx] Follow up Appointment(s)/Referral(s): Louis Ogden MD [STAFF PHYSICIAN] - 04/01/24 9:15 am Rosalina Zhou MD [STAFF PHYSICIAN] - 03/24/24 2:00 pm Rosalino Holcomb MD [Primary Care Provider] - 04/02/24 9:00 am Phil Reed MD [STAFF PHYSICIAN] - 03/21/24 9:30 am Patient Instructions/Handouts: Pulmonary Embolism (DC), Deep Vein Thrombosis (DC) Activity/Diet/Wound Care/Special Instructions: Activity: As tolerated. Take breaks as needed. Diet: Heart healthy and carb consistent diet. Avoid salts, or foods with hidden salts such as canned or boxed foods and frozen dinners. Extra salt makes your heart work harder and traps the fluid in your body for longer. Special Instructions: Take all of your medications as directed and remember to keep all of your doctor's appointments and follow-up as needed. You are also being discharged home on a blood thinner, Eliquis. This is very important to take daily as directed until otherwise advised by your overlock hemmer/oncologist Dr. Reed. Being that you are being placed on a blood thinner it is very important to watch for any signs of bleeding and notify your doctor immediately if you notice any bleeding. It is also important to remove any trip hazards such as rugs or loose extension cords from your home to prevent unnecessary falls and if you do experience a fall or head injury, it is extremely important to be evaluated by a medical provider immediately to ensure no internal bleeding. Thank you for allowing us to participate in your care, it was truly a pleasure having you for our patient!!! . Discharge Disposition: HOME SELF-CARE
--- NOTE | 2024-03-17 09:33 | XR ---
EXAMINATION TYPE: XR chest 1V DATE OF EXAM: 03/17/2024 6:39 AM CLINICAL INDICATION:Male, 73 years old with history of PE; [facility] COMPARISON: Chest radiographs from 03/14/2024 TECHNIQUE: XR chest 1V Frontal view of the chest. FINDINGS: Lungs/Pleura: There is no evidence of pleural effusion, focal consolidation, or pneumothorax. Pulmonary vascularity: Unremarkable. Heart/mediastinum: Cardiomediastinal silhouette is unremarkable. Musculoskeletal: No acute osseous pathology. Other findings: None IMPRESSION: No acute cardiopulmonary disease/process.
[2024-03-17 09:51] VITALS: PULSE 80
--- NOTE | 2024-03-17 12:05 | P.PN ---
Subjective Progress Note Date: 03/17/24 This is a 73-year-old male patient, known history of COPD and chronic lymphocytic leukemia, not receiving any treatment as the patient's hematologic profile has been stable with some mild thrombocytopenia. The patient came into the hospital because of pleuritic right-sided chest pain. No fever. No chills. No night sweats. Hemodynamically stable and the patient's pulse ox was 95% on room air oxygen. Cardiac rhythm was sinus. Nonspecific EKG changes were noted. Chest x-ray showed some atelectatic changes in the right lung base. Based on that, the patient underwent a CT angiogram that showed a right lower lobe pulmonary embolism and possibly some subtle segmental emboli in the left lower lobe and atelectatic changes in the right lung base. He does have underlying splenomegaly related to CLL. The patient was started on IV heparin. Furthermore, Doppler of the lower extremities were done and the patient was found to have a right popliteal DVT. Currently on IV heparin. No new complain ts. Pleurisy has been improving since yesterday. Hemodynamically stable. No other new complaints for now. Follow-up platelet count from today is still pending. He was stable at 12.1. Electrolytes are all stable. The viral screen has been negative. No previous history of DVT or pulmonary embolism. No immobility. No travels. No other complaints otherwise for now. 03/16/2024, the patient is being seen for a follow-up. The patient's pleurisy has improved. He is complaining of some limited cough and congestion. He was started on bronchodilators. He is currently on Eliquis. His platelet count today is stable at 92. Hemoglobin stable at 11.9. No swelling lower extremities. BUN 17 with a creatinine of 1.08. Sodium level is at 138. Echocardiogram showed a preserved LV function. No significant RV failure or pulm hypertension. Estimated PA pressures based on the RV pressure is 45. He is currently on room air oxygen. No other significant events overnight. The patient is seen today March 17, 2024 in follow-up on the selective care unit. He is currently sitting up in bed. Awake and alert in no acute distress. He denies any chest pain. No hemoptysis. Maintaining good O2 saturations in the 90s on room air. Chest x-ray reveals no acute cardiopulmonary process. White count 11.9. Hemoglobin 11.2. Platelets 101. Sodium 137. Potassium 4.4. Bicarb 27. BUN 18. Creatinine 1.13. Glucose 114. He has been initiated on Eliquis. Remains on DuoNeb inhalations and Symbicort. Objective - Vital Signs Vital signs: Vital Signs Temp 98.3 F 03/17/24 08:13 Pulse 80 03/17/24 09:51 Resp 18 03/17/24 08:13 BP 107/67 03/17/24 08:13 Pulse Ox 95 03/17/24 08:13 FiO2 Intake & Output 03/16/24 03/17/24 03/17/24 18:59 06:59 18:59 Intake Total 138 20 10 Balance 138 20 10 Weight 91.1 kg Intake: IV 20 20 10 Invasive Line 1 20 20 10 Oral 118 Other: Voiding Method Toilet Toilet Toilet # Voids 3 2 - Exam GENERAL EXAM: Alert, very pleasant 73-year-old male, sitting up in bed, on room air, comfortable in no apparent distress. HEAD: Normocephalic. EYES: Normal reaction of pupils, equal size. NOSE: Clear with pink turbinates. THROAT: No erythema or exudates. NECK: No masses, no JVD. CHEST: No chest wall deformity. LUNGS: Equal air entry with no crackles, wheeze, rhonchi or dullness. CVS: S1 and S2 normal with no audible murmur, regular rhythm. ABDOMEN: No hepatosplenomegaly, normal bowel sounds, no guarding or rigidity. SPINE: No scoliosis or deformity SKIN: No rashes CENTRAL NERVOUS SYSTEM: No focal deficits, tone is normal in all 4 extremities. EXTREMITIES: There is no peripheral edema. No clubbing, no cyanosis. Peripheral pulses are intact. - Labs CBC & Chem 7: 03/17/24 07:43 03/17/24 07:43 Labs: Abnormal Lab Results - Last 24 Hours (Table) 03/17/24 03/17/24 Range/Units 07:43 07:43 WBC 11.9 H (3.8-10.6) k/uL RBC 3.80 L (4.30-5.90) m/uL Hgb 11.2 L (13.0-17.5) gm/dL Hct 34.9 L (39.0-53.0) % Plt Count 101 L (150-450) k/uL Glucose 114 H (74-99) mg/dL Total Bilirubin 1.6 H (0.2-1.3) mg/dL Total Protein 5.3 L (6.3-8.2) g/dL Albumin 3.3 L (3.5-5.0) g/dL Microbiology - Last 24 Hours (Table) 03/14/24 10:29 Blood Culture - Preliminary Blood 03/14/24 10:14 Blood Culture - Preliminary Blood Assessment and Plan Assessment: Acute pulmonary embolism with a right lower extremity popliteal DVT, unprovoked, currently on room air oxygen Acute pleuritic right-sided chest pain, secondary to pulmonary emboli, improving Right basilar atelectatic changes, related to pulmonary embolism COPD, currently inactive and stable CLL Chronic thrombocytopenia secondary to CLL 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 Number of minutes spent on the visit: 24.
== END 2024-03-17 12:15 | disposition home or self-care (01) | DRG 176 ==
LOC: EC 09:38 → 3SCARD 14:01
PROVIDERS: ADMIT Student in an Organized Health Care Education/Training Program; ATTEND Student in an Organized Health Care Education/Training Program
DX: I26.93 Single subsegmental thrombotic pulmonary embolism without acute cor pulmonale (principal); C91.11 Chronic lymphocytic leukemia of B-cell type in remission; I82.431 Acute embolism and thrombosis of right popliteal vein; D63.0 Anemia in neoplastic disease; D69.59 Other secondary thrombocytopenia; E03.9 Hypothyroidism, unspecified; I10 Essential (primary) hypertension; I27.20 Pulmonary hypertension, unspecified; I45.10 Unspecified right bundle-branch block; J44.9 Chronic obstructive pulmonary disease, unspecified; E80.6 Other disorders of bilirubin metabolism; R09.1 Pleurisy; Z96.643 Presence of artificial hip joint, bilateral; Z79.01 Long term (current) use of anticoagulants; Z79.1 Long term (current) use of non-steroidal anti-inflammatories (NSAID); Z79.51 Long term (current) use of inhaled steroids; Z79.890 Hormone replacement therapy; Z79.899 Other long term (current) drug therapy; Z11.52 Encounter for screening for COVID-19
CPT/HCPCS: 36415; 71045; 71046; 71275; 76705; 80048; 80053; 83605; 83735; 84484; 85025; 85027; 85379; 85610; 85730; 87040; 87636; 93005; 93306; 93970; 94640; 94760; 96365; 96366; 96375; 99285